=== PATIENT | male | born 1960 | race Caucasian/White ===

== ENCOUNTER 2017-07-27 08:13 | Inpatient (IN) | payer BC ==
[2017-06-24 10:40] VITALS: BMI 50.0
--- NOTE | 2017-06-24 11:10 | PAT Medication Instructions ---
Service Date Jun 24, 2017. Current Home Medication List Losartan Potassium (Cozaar), 50 MG PO QAM Naproxen (Naprosyn), 500 MG PO prn Medication Instructions For Your Scheduled Surgery - Hold the following medications 7-10 days prior to surgery per your surgeon's instructions: Naproxen (Naprosyn), 500 MG PO prn - Hold the following medications the morning of surgery: Losartan Potassium (Cozaar), 50 MG PO QAM If you have any questions please call us at [phone] or [phone] or [phone]
--- NOTE | 2017-06-24 12:04 | DIAGNOSTIC IMAGING REPORT ---
CHEST 2 VIEWS ROUTINE HISTORY: 57 years-old Male pat preoperative exam. No acute chest complaints.] Hip degenerative joint disease. COMPARISON: Chest radiograph 06/22/2015 TECHNIQUE: PA and lateral views of the chest FINDINGS: Cardiomediastinal and hilar silhouettes are within normal limits. No pneumothorax, pleural effusion, focal airspace consolidation or overt pulmonary edema. Bones of the chest appear grossly intact. Degenerative changes are seen within the shoulders and spine. IMPRESSION: No acute process. The above report was generated using voice recognition software. It may contain grammatical, syntax or spelling errors. Electronically signed by: Zhen Olvera M.D. 06/24/2017 12:03 PM Dictated Date/Time: 06/24/2017 12:02 PM
[2017-06-24 12:18] LABS: BASO % 0.4 %; BASO ABS # 0.03 K/uL (0-0.2); EOS % 2.2 %; EOS ABS # 0.17 K/uL (0-0.5); HEMATOCRIT 47.6 % (42-52); HEMOGLOBIN 16.6 g/dL (14.0-18.0); IG# 0.04 K/uL (0.00-0.02); LYMPH % 32.4 %; LYMPH ABS # 2.55 K/uL (1.2-3.4); MEAN CELL VOLUME 89.8 fL (80-100); MEAN CORPUSCULAR HEMOGLOBIN 31.3 pg (25-34); MEAN CORPUSCULAR HGB CONC 34.9 g/dl (32-36); MEAN PLATELET VOLUME 10.6 fL (7.4-10.4); MONO ABS # 0.79 K/uL (0.11-0.59); NEUT % 54.5 %; NEUT ABS # 4.29 K/uL (1.4-6.5); PLATELET COUNT 198 K/uL (130-400); RED CELL DISTRIBUTION WIDTH CV 13.2 % (11.5-14.5); RED CELL DISTRIBUTION WIDTH SD 43.2 fL (36.4-46.3); WHITE BLOOD COUNT 7.87 K/uL (4.8-10.8)
[2017-06-24 12:28] LABS: PTT PATIENT 23.7 SECONDS (21.0-31.0)
[2017-06-24 12:34] LABS: BLOOD UREA NITROGEN 20 mg/dl (7-18); CALCIUM 9.3 mg/dl (8.5-10.1); CARBON DIOXIDE 31 mmol/L (21-32); CREATININE 0.96 mg/dl (0.60-1.40); GLUCOSE 97 mg/dl (70-99); SODIUM 136 mmol/L (136-145)
--- NOTE | 2017-07-23 22:02 | HISTORY & PHYSICAL EXAMINATION ---
DATE OF ADMISSION: 07/27/2017 CHIEF COMPLAINT: Right knee pain. HISTORY OF PRESENT ILLNESS: This is a 57-year-old gentleman who is well known to me from previous left hip replacement done 12 years ago. He has done well from that side. Over the past several years, he has developed increased pain and discomfort in his right knee. He has become more and more debilitated by this. We put several shocks in his knee that provided very temporary relief only. When he first gets up, he has quite a bit of pain. Walks a little bit of out, but it is always painful. As he walks more then it gets worse. It is global pain in both medial and lateral. He has nighttime pain. He would like to have this fixed. Of note, patient lives in [place], [place], but comes here to stay for the next 6 weeks or so to recover. PAST MEDICAL HISTORY: Significant for: 1. Hypertension. 2. Sleep apnea with CPAP machine. 3. Hiatal hernia. 4. Obesity with a BMI of 50.5. PAST SURGICAL HISTORY: Include: 1. Left total hip replacement 12 years ago. 2. Right knee arthroscopy. 3. Left shoulder surgery. 4. Left knee arthroscopy. ALLERGIES: None. CURRENT MEDICATIONS: Losartan 50 mg a day. SOCIAL HISTORY: A 57-year-old male. He is from [facility], but currently lives in [place], [place]. He does not smoke. FAMILY HISTORY: No significant history. All age related diseases. REVIEW OF SYSTEMS: Negative for diabetes. Denies any chest pain or shortness of breath. No evidence of DVT or PE. No known bleeding problems. PHYSICAL EXAMINATION: GENERAL: Reveals a healthy pleasant, fairly large male. He looks to be in good health. HEENT: Benign. NECK: Supple, no lymphadenopathy. LUNGS: Clear to auscultation. HEART: Regular rate and rhythm ABDOMEN: Soft, nontender, nondistended. EXTREMITIES: Grossly neurovascularly intact except as follows: Examination of right knee reveals the patient walks with a slight limp. His alignment looks pretty anatomic. Small knee effusion. Range of motion is 5-125. No instability. Relatively painless hip motion. Little stiffness with internal rotation. X-RAYS: X-rays of the right knee reviewed. It shows advanced right knee DJD. He has got near complete loss of his lateral joint space. He has got tricompartment changes. He has some bony fragments around his tibial tubercle. ASSESSMENT: A 57-year-old male 12 years out from a left total hip replacement with advanced right knee degenerative joint disease. He has failed conservative treatment. It is limiting his activities and would like to have his right knee replaced. PLAN: We will take him to the operating room and do a right total knee replacement. The risks and benefits of this procedure were explained to the patient including but not limited to DVT, PE, , infection, neurological injury, vascular injury, bleeding problem, pain, limited range of motion, stiffness, failure to relieve her symptoms, incomplete relief of symptoms, need for further surgery in the future, fracture, leg length inequality, nerve palsy, need for revision surgery, etc. The patient understands and desires to proceed. Informed consent was obtained. We did talk to him about bringing his CPAP machine to the hospital. FAHAD
[2017-07-27] VITALS (8 sets, daily range): BP systolic 106–143; BP diastolic 56–77; PULSE 53–88; TEMP 36.6–37.3; O2SAT 94–98; Ht 175.3 cm; Wt 149.0 kg
[~2017-07-27] VITALS: Ht 175.3 cm; Wt 149.0 kg
[~2017-07-27 08:13] MED LIST: ACETAMINOPHEN 500 MG TAB PO SCH; BUPIVACAINE 0.5 % 5 MG/1 ML PF 10ML VIAL ONE; BUPIVACAINE LIPOSOME 266 MG, BUPIVACAINE/EPINEPHRINE INJ 50 ML, SODIUM CHLORIDE 0.9% PF... INFIL SCH; CEFAZOLIN 3000MG IV PUSH 15 ML IV SCH; FAMOTIDINE 20 MG TAB PO SCH; GABAPENTIN 300 MG CAP PO SCH; LACTATED RINGER'S 1000ML 1,000 ML IV SCH; LACTATED RINGER'S 1000ML 500 ML IV SCH; LACTATED RINGER'S 1000ML IV SCH; LOSA50TA6 PO; NPR500 PO; OXYCODONE HCL 10 MG TABCR (OXYCONTIN) PO SCH; SCOPOLAMINE 1.5 MG TDSY TD SCH; TRANEXAMIC ACID INJ 1,000 MG in SYRINGE 0 ML IV SCH
--- NOTE | 2017-07-27 08:46 | History & Physical Bridge Note ---
H&P Re-Evaluation Bridge Note: I have examined the patient, reviewed the History & Physical and in the interval since the performance of the History & Physical I have noted the following changes of clinical significance: No changes noted
[2017-07-27] MEDS ORDERED: SCOPOLAMINE 1.5 MG TDSY TD ONE (08:53)
[2017-07-27] MEDS ORDERED: ATROPINE SULFATE 0.1 MG/ML 5ML SYR IV PRN (09:30)
[2017-07-27] MEDS ORDERED: EpHEDrine SULFATE INJ 50 MG/ML AMP IV PRN (09:30)
[2017-07-27] MEDS ORDERED: ONDANSETRON INJ 2 MG/ML 2 ML VIAL IV PRN ×2 (09:30→13:15)
[2017-07-27] MEDS ORDERED: FENTANYL CITRATE INJ 50 MCG/1 ML 2 ML VIAL IV PRN (09:30)
[2017-07-27] MEDS ORDERED: PROPOFOL IV EMULSION 10 MG/ML 20 ML VIAL IV ONE (09:32)
[2017-07-27] MEDS ORDERED: FENTANYL CITRATE INJ 50 MCG/1 ML 2 ML VIAL ONE (09:32)
[2017-07-27] MEDS ORDERED: LIDOCAINE HCL 2% 2 ML VIAL (20MG/ML) ONE (09:32)
[2017-07-27] MEDS ORDERED: MIDAZOLAM HCL 1 MG/ML 2ML VIAL ONE (09:33)
[2017-07-27] MEDS ORDERED: BUPIVACAINE/EPINEPHRINE 0.25% 1:200,000 30 ML VIAL ONE (10:59)
[2017-07-27] MEDS ORDERED: BUPIVACAINE LIPOSOME 1/3% 266 MG/20 ML VIAL INFIL ONE (11:00)
[2017-07-27] MEDS ORDERED: SODIUM CHLORIDE 0.9% PF 50 ML VIAL ONE (11:00)
[2017-07-27] MEDS ORDERED: BACITRACIN 50000 UNIT VIAL ONE (11:00)
[2017-07-27] MEDS ORDERED: PHENYLEPHRINE 100MCG/ML 5ML SYR ONE (11:32)
[2017-07-27] MEDS ORDERED: EpHEDrine SULFATE 50MG/5ML SYR ONE (11:32)
--- NOTE | 2017-07-27 13:05 | [facility] Post Operative Brief Note ---
Immediate Operative Summary Operative Date Jul 27, 2017. Pre-Operative Diagnosis Advanced Right Knee Degenerative Joint Disease Post-Operative Diagnosis Advanced Right Knee Degenerative Joint Disease Procedure(s) Performed Right Total Knee Arthroplasty Surgeon Dr. Nichols [employer] Surgeon(s) DEBBI Talamantes Estimated Blood Loss 50 ml Findings Consistent with Post-Op Diagnosis Fluids (cc crystalloids) 1600 cc Specimens A. Right Knee Bone and Tissue Drains None Anesthesia Type MAC Spinal Regional Complication(s) none Disposition Accompanied Pt To Recover: no Disposition: Recovery Room / PACU
[2017-07-27] MEDS ORDERED: BISACODYL 10 MG SUPP PR PRN (13:15)
[2017-07-27] MEDS ORDERED: METOCLOPRAMIDE HCL INJ 5 MG/ML 2 ML VIAL IV PRN (13:15)
[2017-07-27] MEDS ORDERED: ALUMINUM/MAGNESIUM/SIMETH (MAALOX MAX) 30 ML UDC PO PRN (13:15)
[2017-07-27] MEDS ORDERED: ZOLPIDEM TARTRATE 5 MG TAB PO PRN (13:15)
[2017-07-27] MEDS ORDERED: TAMSULOSIN HCL 0.4 MG CAP PO PRN (13:15)
[2017-07-27] MEDS ORDERED: DiphenhydrAMINE HCL 50 MG/ML VIAL IV PRN (13:15)
[2017-07-27] MEDS ORDERED: SILVER SULFADIAZINE 1% CR 50 GM JAR EXT PRN (13:15)
[2017-07-27] MEDS ORDERED: MAGNESIUM HYDROXIDE SUSP 30 ML UDC PO PRN (13:15)
--- NOTE | 2017-07-27 13:47 | Anesthesiology Progress Note ---
Anesthesia Post Op Note Date & Time Jul 27, 2017 at 13:47 Vital Signs Pain Intensity: 0 Vital Signs Past 12 Hours Date Time Temp Pulse Resp B/P (MAP) Pulse Ox O2 Delivery O2 Flow Rate FiO2 07/27/17 13:40 58 16 101/52 100 Nasal Cannula 4 07/27/17 13:30 54 16 103/48 100 Nasal Cannula 4 07/27/17 13:20 54 16 109/50 96 Oxymask 10 07/27/17 13:12 37.5 65 16 106/50 96 Oxymask 10 07/27/17 09:01 36.7 69 18 143/77 94 Room Air Notes Mental Status: alert / awake / arousable, participated in evaluation Pt Amnestic to Procedure: Yes Nausea / Vomiting: adequately controlled Pain: adequately controlled Airway Patency, RR, SpO2: stable & adequate BP & HR: stable & adequate Hydration State: stable & adequate Neuraxial Anesthesia: was administered, sensory block is resolving Anesthetic Complications: no major complications apparent
--- NOTE | 2017-07-27 14:04 | DIAGNOSTIC IMAGING REPORT ---
R KNEE 1 OR 2 VIEWS ROUTINE CLINICAL HISTORY: AP/LATERAL IN PACU RIGHT KNEE pain COMPARISON: None. DISCUSSION: Anatomic alignment status post total right knee arthroplasty. Good contact between prosthetic and the Bone. Expected soft tissue postoperative change. IMPRESSION: Anatomic alignment status post total right knee arthroplasty. The above report was generated using voice recognition software. It may contain grammatical, syntax or spelling errors. Electronically signed by: Tyrone Rivera M.D. 07/27/2017 2:03 PM Dictated Date/Time: 07/27/2017 2:02 PM
[2017-07-27] MEDS: OXYCODONE HCL IR 5 MG TAB (IMMEDIATE RELEASE) PO PRN (15:26)
[2017-07-27] MEDS: D5W AND 1/2NSS + 20MEQ KCL 1,000 ML IV SCH ×2 (15:35→22:13)
[2017-07-27] MEDS: CHECK SCOPOLAMINE PATCH PLACEMENT SCH ×2 (15:38→23:40)
--- NOTE | 2017-07-27 15:54 | OPERATIVE REPORT ---
DATE OF OPERATION: 07/27/2017 SURGEON: Dr. Tomas Nichols. DIRECTOR OF ACCOUNTING: DEBBI Roca PREOPERATIVE DIAGNOSIS: Right knee degenerative joint disease. POSTOPERATIVE DIAGNOSIS: Same. PROCEDURE PERFORMED: Right cemented posterior stabilized total knee arthroplasty. COMPLICATIONS: None. ESTIMATED BLOOD LOSS: 50 mL. FLUID REPLACEMENT: 1600 mL crystalloid fluid replacement. TOURNIQUET TIME: 66 minutes at 300 mmHg. ANESTHESIA: Spinal with adductor canal block. DRAINS: None. SPECIMENS: Right knee sent for pathology. OPERATIVE INDICATIONS: The patient is a 57-year-old gentleman who is from [facility], but currently working down in [place], who has had a several year history of increasing right knee pain and discomfort, unresponsive to conservative care. We put multiple shots in his knees, which provided just very temporary relief. X-rays show advanced knee arthritis, particularly in the lateral side. He did have a history of an open surgery on the lateral side of his knee in high school, likely a partial meniscectomy. He failed conservative treatment and elected to proceed with operative treatment. OPERATIVE FINDINGS: Operative findings revealed advanced right knee DJD. He had grade 4 changes in all 3 compartments. He had grade 4 changes extensively in the medial femoral condyle and interestingly, the medial tibial plateau was relatively well preserved. In the lateral compartment, he had grade 4 changes of both on the femoral condyle as well as the tibial plateau and pretty extensive grade 4 changes of the patellofemoral joint. OPERATIVE IMPLANTS: Operative implants consisted of: 1. Biomet Vanguard size 70 right posterior stabilized femoral component. 2. Biomet size 75 tibial tray. 3. A 10-mm posterior stabilized polyethylene insert. 4. A 34 x 8.5 all poly patella. OPERATIVE PROCEDURE: The patient was taken to the operating room, identified and placed on the operating table in the supine position. All contact areas were appropriately padded. IV antibiotics were provided by anesthesia team. A spinal anesthetic and adductor canal block had been provided in the holding area. Chow catheter was placed in sterile fashion. A right thigh tourniquet was then placed and the right lower extremity was then prepped and draped in the usual sterile fashion. The right leg was then elevated and exsanguinated with Esmarch and tourniquet was placed at 300 mmHg. An anterior approach to the right knee was then performed through a longitudinal incision centered over the patella. Sharp dissection was carried out through the subcutaneous tissues down to the level of the extensor mechanism. We did use an entirely new incision as this previous lateral incision was from his high school days. Subperiosteal dissection was carried out medially. The fat pad was resected from beneath the patellar tendon. The lateral patellofemoral ligament was released. The patella was everted and knee was flexed. Of note, his extensor mechanism was fairly tight and difficult to mobilize due to the multiple bone fragments in the patella tendon itself. I did not feel like I could remove these without compromising the patellar tendon. The knee was flexed. The osteophytes were taken off the distal femur. The ACL and PCL were then released from the distal femur and the tibia subluxated anteriorly. The external tibial alignment jig was then placed in the anterior face of the tibia and adjusted 14 mm medially. Proximal tibial cut was made to remove about 2 mm of bone from the most deficient aspect of the medial tibial plateau. Tibia was then sized to a size 75. Attention was then drawn to the femur. The distal femur was entered with a sharp drill. Intramedullary canal was suctioned. A right 6-degree valgus cutting guide was placed. Distal femoral cutting block was pinned in place. Distal femoral cut was made to take an additional 3 mm of bone off the distal femur. The femur was then sized to a size 70. We downsized this slightly. The AP cutting block was pinned parallel to the epicondylar axis, which was 5 degrees of external rotation. The anterior cut, anterior chamfer, posterior cut, and posterior chamfer cuts were made. Box cutting guide was placed. The box cut was made. The remnants of the medial and lateral menisci were excised. The osteophytes were taken off the posterior aspect of the femur. Trial femoral component was placed. Tibial tray was pinned in maximum external rotation and drill and stem punch were used to create defect in the proximal tibia for the tibial tray. The knee was then trialed and a 10-mm insert fit most appropriately. I just felt like a 12 insert was just a little bit tight. Attention was then drawn to the patella. The patella was cleaned of all soft tissues. Patella thickness measured 24 mm in thickness and it was cut down to 14. It was sized to a size 34 patella. Lug holes were drilled for a 34 patella. Lateral osteophyte was removed. The patellar button was placed. Knee was taken through range of motion and the patella tracked nicely with no thumbs test. Attention was then drawn toward placement of the permanent components. All trial components were removed. Bone plug was placed in the distal femur to limit blood loss. A double batch of Palacos G cement was mixed. A right size 70 posterior stabilized femoral component, size 75 tibial tray, a 10-mm posterior stabilized polyethylene insert, and a 34 x 8.5 all poly patella then cemented in place. Knee was brought out into full extension until cement hardened. A final cement check was then performed. Pericapsular tissues were injected with a total of 100 mL of a combination of 20 mL of Exparel, 30 mL of normal saline, and 50 mL of 0.25% Marcaine with epinephrine. The patient did receive 1 gram of tranexamic acid. The tourniquet was then let down for a final tourniquet time of 66 minutes. Hemostasis was assured with use of electrocautery. The extensor mechanism was then closed with a combination of #1 PDS suture and #1 Vicryl suture in a [id number] fashion. Extensor mechanism was checked and found to be intact. The subcutaneous tissues were then closed with 2-0 Dexon suture in a buried interrupted fashion. Skin was closed skin trevor. Leg was then cleaned and dried and a sterile dressing of Xeroform, 4 x 4, sterile cast padding and Pablito bandage were applied. The patient then transferred to the recovery room in stable condition. The patient tolerated the procedure well with no complications. All needle and sponge counts were correct at the end of the operation. I attest to the content of the Intraoperative Record and any orders documented therein. Any exception s are noted below.
[2017-07-27] MEDS: MoRPHine SULFATE 2 MG/ML CARP IV PRN ×3 (15:59→20:48)
--- NOTE | 2017-07-27 17:32 | PROGRESS NOTE ---
DATE: 07/27/2017 SUBJECTIVE: A 57-year-old gentleman postop from a right knee replacement. He is doing well. He is starting to have some pain in his knee. No chest pain or shortness of breath. Not feeling dizzy or lightheaded. OBJECTIVE: VITAL SIGNS: Temperature is 36.6. Vital signs stable. GENERAL: Reveals a healthy, pleasant, middle-aged male. He is sitting up in bed and talking to his family. Looks comfortable. LUNGS: Clear to auscultation. HEART: Regular rate and rhythm. ABDOMEN: Soft, nontender, nondistended. EXTREMITIES: Grossly neurovascularly intact except as follows: Examination of the right leg reveals the leg to be well aligned. He can dorsiflex and plantarflex his foot appropriately. He is neurologically intact. The dressing is clean, dry and intact. X-RAYS: X-rays of the right knee from today are reviewed. It shows a cemented posterior stabilized total knee arthroplasty. The components to be in good position. No signs of problems. ASSESSMENT: A 57-year-old gentleman postop from a right knee replacement, doing well. His pain is controlled. He is neurologically intact. PLAN: 1. DVT prophylaxis including thigh-high TEDs, SCDs, and aspirin twice a day. 2. PT/OT. Weight bear as tolerated. Right total knee protocol. 3. Pain control, doing pretty well with current pain regimen. 4. IV antibiotics x24 hours. 5. Disposition: He is planning to be discharged likely to home with some home health once adequately recovered.
[2017-07-27] MEDS: FERROUS GLUCONATE 324 MG TAB PO SCH (17:48)
[2017-07-27] MEDS: KETOROLAC TROMETHAMINE 30 MG/ML VIAL IV. SCH ×2 (17:48→23:38)
[2017-07-27] MEDS ORDERED: TRANEXAMIC ACID INJ 1,000 MG in SODIUM CHLORIDE 0.9% 100ML 100 ML IV SCH (18:00)
[2017-07-27] MEDS: CEFAZOLIN IV 2,000 MG in SYRINGE 0 ML IV SCH (20:37)
[2017-07-27] MEDS: DOCUSATE SODIUM 100 MG CAP PO SCH (20:37)
[2017-07-27] MEDS: ASPIRIN 325 MG ECTAB PO SCH (20:38)
[2017-07-27] MEDS: SENNA 8.6 MG TAB PO SCH (20:39)
[2017-07-27] MEDS: TAPENTADOL ER 50 MG TABCR PO SCH (20:48)
[2017-07-27] MEDS: ACETAMINOPHEN 500 MG TAB PO SCH (22:05)
[2017-07-28] VITALS (8 sets, daily range): BP systolic 121–145; BP diastolic 58–82; PULSE 77–81; TEMP 36.3–37.7; O2SAT 93–97
[2017-07-28] MEDS: MoRPHine SULFATE 2 MG/ML CARP IV PRN ×6 (03:10→20:08)
[2017-07-28] MEDS: CEFAZOLIN IV 2,000 MG in SYRINGE 0 ML IV SCH (03:57)
[2017-07-28] MEDS: D5W AND 1/2NSS + 20MEQ KCL 1,000 ML IV SCH ×2 (04:55→10:54)
[2017-07-28] MEDS: KETOROLAC TROMETHAMINE 30 MG/ML VIAL IV. SCH ×4 (05:33→23:36)
[2017-07-28] MEDS: ACETAMINOPHEN 500 MG TAB PO SCH ×3 (05:34→21:33)
[2017-07-28] MEDS: CHECK SCOPOLAMINE PATCH PLACEMENT SCH ×3 (07:41→23:36)
[2017-07-28 07:55] LABS: HEMATOCRIT 38.5 % (42-52); MEAN CELL VOLUME 91.4 fL (80-100); MEAN CORPUSCULAR HEMOGLOBIN 30.9 pg (25-34); MEAN CORPUSCULAR HGB CONC 33.8 g/dl (32-36); MEAN PLATELET VOLUME 10.2 fL (7.4-10.4); PLATELET COUNT 181 K/uL (130-400); RED CELL DISTRIBUTION WIDTH CV 13.3 % (11.5-14.5); RED CELL DISTRIBUTION WIDTH SD 44.5 fL (36.4-46.3); WHITE BLOOD COUNT 9.29 K/uL (4.8-10.8)
[2017-07-28 08:26] LABS: CALCIUM 8.3 mg/dl (8.5-10.1); CREATININE 1.1 mg/dl (0.60-1.40); POTASSIUM 3.8 mmol/L (3.5-5.1)
[2017-07-28] MEDS: MULTIVITAMIN TAB PO SCH (08:38)
[2017-07-28] MEDS: FERROUS GLUCONATE 324 MG TAB PO SCH ×3 (08:38→18:35)
[2017-07-28] MEDS: DOCUSATE SODIUM 100 MG CAP PO SCH ×2 (08:38→21:33)
[2017-07-28] MEDS: TAPENTADOL ER 50 MG TABCR PO SCH ×2 (08:38→21:31)
[2017-07-28] MEDS: LOSARTAN POTASSIUM 50 MG TAB PO SCH (08:39)
[2017-07-28] MEDS: PANTOprazole SOD 40 MG TAB PO SCH (08:39)
[2017-07-28] MEDS: ASPIRIN 325 MG ECTAB PO SCH ×2 (08:39→21:32)
[2017-07-28] MEDS ORDERED: ACET-24 PO (09:54)
[2017-07-28] MEDS ORDERED: ASPEC325 PO (09:54)
[2017-07-28] MEDS ORDERED: RXC5 PO (09:54)
--- NOTE | 2017-07-28 09:56 | Discharge Instructions ---
Discharge Instructions Date of Service Jul 28, 2017. Admission Reason for Admission: Right Knee Degenerative Joint Disease Discharge Discharge Diagnosis / Problem: Right Knee Replacement Discharge Goals Goal(s): Decrease discomfort, Improve function, Increase independence, Improve disease control, Therapeutic intervention Activity Recommendations Activity Limitations: per Instructions/Follow-up section Weightbearing Status: Right weightbearing . Instructions / Follow-Up Instructions / Follow-Up ACTIVITY RECOMMENDATIONS: Physical Therapy: * You will go to physical therapy three times each week for four to six weeks after your surgery in order to regain your knee range of motion and to retrain your knee to work properly. * It is just as important to make sure you are getting your knee perfectly straight as it is to regain your knee bend. * Taking a pain pill an hour before therapy can help you have a more productive and comfortable therapy session. Home Exercise: * You were shown a series of exercises (heel props, heel slides, etc.) in the hospital. Do these exercises three to four times each day including the exercises you were shown in physical therapy. Walking: * Get up and walk several times each day. For the first four weeks, try not to stand or walk for more than one hour at a time. If you do stand or walk for more than one hour, you will not hurt anything, but your knee and leg will likely swell. * As you feel comfortable, you may change from the walker or crutches to a cane and then to independent walking. MEDICATIONS: New Medicine: * You will likely be taking one or more of these medications: 1. Oxycodone - A quick and shorter-acting pain medication. Take one to two tablets every four to six hours to lessen your pain. 2. Aspirin - Thins your blood to lessen the chance of forming a blood clot. * The most common side effects of pain medicine and iron are nausea and constipation. If nausea or constipation is too much of a problem or if you have any questions about your new medicines or doses, call [facility] at [phone]. We will try to help you manage these issues. VERY IMPORTANT TO READ AND REVIEW" Pain: * The immediate post-operative period after knee replacement surgery is often quite painful. * You are given a prescription for pain medicine. You should take it, as directed, when you need it, especially before physical therapy and before going to bed. Pain that interferes with sleep is very common and can last several months. * You will likely need pain medicine for the first four to six weeks. It will not stop all of the pain. The pain will lessen and as you feel better, you may change to milder pain medicine such as Tylenol. * The most common side effects of pain medicine are nausea and constipation, so don't take more than you need. SPECIAL CARE INSTRUCTIONS: TEDs/Elastic Stockings: * The white elastic stockings help limit swelling and prevent blood clots from forming in your legs. The more you wear them, the more they work. * Wear them for six weeks after knee replacement surgery and four weeks after partial knee replacement. Prevention of Infection: * Take antibiotics one hour before any dental cleaning, dental work, urological procedure, gastrointestinal procedure or any invasive surgery in order to prevent your new joint from getting infected. * You may get the antibiotics from the doctor performing the procedure or you may call our office at before and we will call in a prescription to the pharmacy of your choice. Things to Watch For: * Drainage from the incision site that occurs more than one week after your surgery. * Severely increased knee/leg pain or swelling. * Increased redness at the incision site. * Fever above 102 degrees Fahrenheit. * Unusual chest pain or shortness of breath. * Unusual pain or burning with urination. Call [facility] at with any of the above problems or if you have any questions about your medicines or recovery. FOLLOW UP VISIT: Make an appointment to see your doctor for approximately two weeks after surgery for a progress check and staple removal by calling the office at . Current Hospital Diet Patient's current hospital diet: Regular Diet Discharge Diet Recommended Diet: Regular Diet Procedures Procedures Performed: Right Total Knee Arthroplasty Pending Studies Studies pending at discharge: no Medical Emergencies . Who to Call and When: Medical Emergencies: If at any time you feel your situation is an emergency, please call 120 immediately. . Non-Emergent Contact Non-Emergency issues call your: Surgeon . "Provider Documentation" section prepared by Tomas Nichols. . VTE Core Measure Inpt VTE Proph given/why not?: Other Anticoagulation, T.E.D. Stockings, SCD's
--- NOTE | 2017-07-28 09:58 | PROGRESS NOTE ---
DATE: 07/28/2017 SUBJECTIVE: A 57-year-old gentleman postop day 1 from right knee replacement. He is doing pretty well. Rates his most severe pain is a 6. No chest pain or shortness of breath. Not feeling dizzy or lightheaded. OBJECTIVE: VITAL SIGNS: Temperature 36.8. Vital signs stable. PHYSICAL EXAMINATION: GENERAL: Reveals a fairly large gentleman sitting up in his bedside chair talking with a therapist. LUNGS: Clear to auscultation. HEART: Regular rate and rhythm. ABDOMEN: Soft, nontender, nondistended. EXTREMITIES: Grossly neurovascularly intact except as follows. Examination of the right leg reveals the dressing to be clean, dry and intact. There is no drainage. He can dorsiflex and plantarflex his foot appropriately. He is neurologically intact. LABORATORY DATA: Hemoglobin 13.0. Hematocrit 38.5. Electrolytes are stable. ASSESSMENT: This is a 57-year-old gentleman postop day 1 from a right knee replacement, doing pretty well. Pain is reasonably well controlled. PLAN: 1. DVT prophylaxis including thigh-high TEDs, SCDs, and aspirin twice a day. 2. PT/OT. Weight bear as tolerated. Right total knee protocol. 3. Pain control, doing pretty well with current pain regimen. 4. Disposition: He is planning to be discharged to home with some home health once adequately recovered.
[2017-07-28] MEDS: OXYCODONE HCL IR 5 MG TAB (IMMEDIATE RELEASE) PO PRN ×3 (10:15→21:32)
--- NOTE | 2017-07-28 13:36 | Anesthesiology Progress Note ---
Anesthesia Post Op Note Date & Time Jul 28, 2017 at 13:35 Vital Signs Pain Intensity: 9.0 Vital Signs Past 12 Hours Date Time Temp Pulse Resp B/P (MAP) Pulse Ox O2 Delivery O2 Flow Rate FiO2 07/28/17 12:08 36.9 79 139/58 (85) 94 Room Air 07/28/17 07:37 36.8 79 18 122/60 (80) 94 Room Air 07/28/17 07:30 94 Room Air 07/28/17 03:18 36.9 79 16 141/82 (101) 94 Room Air Notes Mental Status: alert / awake / arousable, participated in evaluation Pt Amnestic to Procedure: Yes Nausea / Vomiting: adequately controlled Pain: adequately controlled Airway Patency, RR, SpO2: stable & adequate BP & HR: stable & adequate Hydration State: stable & adequate Awake alert, pain controlled with medications at rest pain scale 1. No complaints with anesthesia care.
[2017-07-28] MEDS: SENNA 8.6 MG TAB PO SCH (21:36)
[2017-07-29] MEDS: OXYCODONE HCL IR 5 MG TAB (IMMEDIATE RELEASE) PO PRN ×2 (03:17→08:30)
[2017-07-29] MEDS: KETOROLAC TROMETHAMINE 30 MG/ML VIAL IV. SCH (06:00)
[2017-07-29] MEDS: ACETAMINOPHEN 500 MG TAB PO SCH (06:00)
[2017-07-29 07:07] VITALS: BP 166/75; PULSE 77; TEMP 37.3; O2SAT 96
[2017-07-29] MEDS: CHECK SCOPOLAMINE PATCH PLACEMENT SCH (08:00)
[2017-07-29] MEDS: TAPENTADOL ER 50 MG TABCR PO SCH (09:12)
[2017-07-29] MEDS: FERROUS GLUCONATE 324 MG TAB PO SCH (09:12)
[2017-07-29] MEDS: PANTOprazole SOD 40 MG TAB PO SCH (09:13)
[2017-07-29] MEDS: MULTIVITAMIN TAB PO SCH (09:13)
[2017-07-29] MEDS: LOSARTAN POTASSIUM 50 MG TAB PO SCH (09:13)
--- NOTE | 2017-07-29 09:34 | PROGRESS NOTE ---
DATE: 07/29/2017 DATE: 07/29/2017 SUBJECTIVE: A 57-year-old gentleman postop day 2 from a right knee replacement. He is doing pretty well. Pain is better today. No chest pain or shortness of breath. Not feeling dizzy or lightheaded. He is doing well with pain pills. OBJECTIVE: VITAL SIGNS: Temperature 37.3. Vital signs stable. PHYSICAL EXAMINATION: GENERAL: Reveals a pleasant, middle-aged male. I had to wake him this morning. LUNGS: Clear to auscultation. HEART: Regular rate and rhythm. ABDOMEN: Soft, nontender, nondistended. EXTREMITY EXAMINATION: Grossly neurovascularly intact except as follows: Examination of the right leg reveals the dressing to be in place. Just a slight bit of bloody drainage on the anterior aspect. Leg is well aligned. He can dorsiflex and plantarflex his food appropriately. He is neurologically intact. ASSESSMENT: A 57-year-old gentleman postop day 2 from a right knee replacement, doing pretty well. Pain is controlled. PLAN: 1. DVT prophylaxis including thigh-high TEDs, SCDs, and aspirin twice a day. 2. PT/OT. Weightbearing as tolerated. Right total knee protocol. 3. Pain control. Doing pretty well with current pain regimen. 4. Disposition. Plan to discharge to home with some home health later today.
[2017-07-29] MEDS: DOCUSATE SODIUM 100 MG CAP PO SCH (09:48)
[2017-07-29] MEDS: ASPIRIN 325 MG ECTAB PO SCH (09:48)
[2017-07-29 11:38] VITALS: BP 166/75; PULSE 77; TEMP 37.3; O2SAT 96
== END 2017-07-29 12:29 | disposition home health service (06) | DRG 470 ==
LOC: C.ACU 08:13 → C.MSN 13:09 → ENRESERV 13:57
PROVIDERS: ADMIT Orthopaedic Surgery Sports Medicine; ATTEND Orthopaedic Surgery Sports Medicine
PROC: 0SRT0J9 Replacement of Right Knee Joint, Femoral Surface with Synthetic Substitute, Cemented, Open Approach (ICD-10-PCS; principal; 2017-07-27 11:00)
DX: M17.11 Unilateral primary osteoarthritis, right knee (principal); Z68.42 Body mass index [BMI] 45.0-49.9, adult; I10 Essential (primary) hypertension; G47.30 Sleep apnea, unspecified; E66.9 Obesity, unspecified; Z96.642 Presence of left artificial hip joint

== ENCOUNTER → 2017-09-06 | Outpatient (CLI) | payer BC ==
[~2017-09-06] MED LIST changes: +ACET-24 PO; -ACETAMINOPHEN 500 MG TAB PO SCH; +ASPEC325 PO; -BUPIVACAINE 0.5 % 5 MG/1 ML PF 10ML VIAL ONE; -BUPIVACAINE LIPOSOME 266 MG, BUPIVACAINE/EPINEPHRINE INJ 50 ML, SODIUM CHLORIDE 0.9% PF... INFIL SCH; -CEFAZOLIN 3000MG IV PUSH 15 ML IV SCH; -FAMOTIDINE 20 MG TAB PO SCH; -GABAPENTIN 300 MG CAP PO SCH; -LACTATED RINGER'S 1000ML 1,000 ML IV SCH; -LACTATED RINGER'S 1000ML 500 ML IV SCH; -LACTATED RINGER'S 1000ML IV SCH; -OXYCODONE HCL 10 MG TABCR (OXYCONTIN) PO SCH; +RXC5 PO; -SCOPOLAMINE 1.5 MG TDSY TD SCH; -TRANEXAMIC ACID INJ 1,000 MG in SYRINGE 0 ML IV SCH
[2017-09-06 17:56] LABS: BASO % 0.6 %; BASO ABS # 0.06 K/uL (0-0.2); EOS ABS # 0.28 K/uL (0-0.5); HEMATOCRIT 46.9 % (42-52); HEMOGLOBIN 15.7 g/dL (14.0-18.0); IG# 0.11 K/uL (0.00-0.02); LYMPH % 31.4 %; LYMPH ABS # 2.97 K/uL (1.2-3.4); MEAN CELL VOLUME 92.5 fL (80-100); MEAN CORPUSCULAR HGB CONC 33.5 g/dl (32-36); MONO % 11.3 %; MONO ABS # 1.07 K/uL (0.11-0.59); NEUT % 52.5 %; NEUT ABS # 4.98 K/uL (1.4-6.5); PLATELET COUNT 256 K/uL (130-400); WHITE BLOOD COUNT 9.47 K/uL (4.8-10.8)
[2017-09-06 18:22] LABS: ALBUMIN 4.1 gm/dl (3.4-5.0); ALT/SGPT 33 U/L (12-78); AST/SGOT 20 U/L (15-37); BLOOD UREA NITROGEN 21 mg/dl (7-18); CARBON DIOXIDE 28 mmol/L (21-32); CREATININE 1.01 mg/dl (0.60-1.40); GLUCOSE 102 mg/dl (70-99); POTASSIUM 4.9 mmol/L (3.5-5.1); SODIUM 136 mmol/L (136-145)
[2017-09-06 18:25] LABS: ALKALINE PHOSPHATASE 62 U/L (45-117); CHOLESTEROL 188 mg/dl (0-200); LDL CHOLESTEROL CALCULATED 118 mg/dl; TOTAL PROTEIN 7.7 gm/dl (6.4-8.2)
== END | disposition home or self-care (01) ==
LOC: C.LABMFLN 11:00
PROVIDERS: ATTEND Family Medicine
DX: I10 Essential (primary) hypertension (principal); Z96.659 Presence of unspecified artificial knee joint

== ENCOUNTER 2025-02-15 22:54 | Observation (INO) ==
--- NOTE | 2025-02-15 23:45 | Emergency Department Note ---
Impression & Plan Chest pain, Elevated troponin ED Provider Note Provider: Michael Belcher MD CHIEF COMPLAINT: Chest discomfort, fatigue HISTORY OF PRESENT ILLNESS: Patient is a 64-year-old gentleman history of PE/DVT on Eliquis, obesity, BPH, hypertension, lower extremity varicosities presenting here today with reporting her last 2 to 3 weeks of concerns of some central chest discomfort a dull ache. Worse with exertion and gets very fatigued with any exertion. Low bit lightheaded when trying to exert self but no syncope. Maybe a little bit of shortness of breath with exertion. Has a little bit of increased swelling of the lower legs. Does state compliance with home Eliquis. No falls or trauma. No abdominal pain or nausea reported. No fevers or cough. No recent stress test reported. PAST MEDICAL HISTORY: As noted above MEDICATIONS: Reviewed home medications FMH: Family with heart issues/CAD reported SOCIAL HISTORY: Non-smoker, PHYSICAL EXAM: GENERAL: alert and oriented in no acute distress on stretcher Head: normocephalic and atraumatic EYES: No injection, discharge or icterus. NECK: Trachea midline. ENT: Mucous membranes pink and moist LUNGS: Airway patent. No retractions. Breath sounds clear with good air entry bilaterally. HEART: Regular rate and rhythm. No chest wall tenderness ABDOMEN: Soft and non-tender, without guarding or rebound. SKIN: Acyanotic, warm, dry, without rashes EXTREMITIES: With trace to 1+ lower extremity edema. No significant tenderness or wounds noted. NEUROLOGICAL: No focal deficits. No aphasia. No facial droop or slurred speech.Ambulatory. EK bpm normal sinus rhythm. No PVC or PAC. No acute ST segment elevation with nonspecific inferior lateral T wave inversions. QTc 381. CONTINUOUS CARDIAC MONITORING: was ordered and showed a heart rate of 60s bpm in normal sinus rhythm Patient's laboratory studies and imaging reviewed. Differential includes Cardiac ischemia, aortic dissection, pulmonary embolism, pneumothorax, pneumonia, pericarditis, myocarditis, esophageal rupture, GERD, cholecystitis, pancreatitis, musculoskeletal, as well as other pathologies. IMPRESSION/MEDICAL DECISION MAKING: Patient with 2 to 3 weeks of mild or low-level chest discomfort worse with exertion minimal shortness of breath. Is anticoagulated doubt VTE. No severe pain and I doubt this is dissection. EKG without evidence of STEMI although there is a question of some inferior lateral T wave version. Given full dose aspirin here. Denies other GI symptoms. Chest x-ray obtained and blood work sent. No significant leukocytosis or anemia. Denies other infectious symptoms. Doubt pneumonia or pericarditis at this time. Troponin returns elevated just over 100. Electrolytes, kidney function, LFTs, lipase return without significant abnormality. Discussed with patient given exertional type symptoms and his risk factors do question if there is an occult cardiac process evolving here possible evolving NSTEMI. Has been using his Eliquis and took it this evening --will defer heparinization at this time. Will bring in for further care and cardiac evaluation and the hospitalist team was contacted. DIAGNOSIS: Chest pain, elevated troponin DISPOSITION: Hospitalist will evaluate Patient was agreeable with this plan. Past Med/Surg History Problem List (Updated 02/16/25 @ 00:29 by Michael Belcher M.D.) Elevated troponin (Acute) Chest pain (Acute) Cough Right ankle strain Right foot pain Prediabetes diet controlled Left knee DJD Sensorineural hearing loss of both ears SOB (shortness of breath) Recurrent deep vein thrombosis (DVT) of lower extremity History of surgery on arm Right leg swelling Bronchitis Ulnar neuropathy at elbow of right upper extremity Right carpal tunnel syndrome Varicose veins of left lower extremity with pain HERRERA (dyspnea on exertion) Atherogenic dyslipidemia Palpitations Venous reflux Coronary artery calcification seen on CAT scan Pulmonary nodule Varicose veins of left thigh Trigger finger (acquired) S/P TURP History of total left hip replacement Left hip pain 04/08/23 Left ankle pain 04/06/23 Cellulitis 04/06/23 Left foot pain 04/06/23 Migraine Postural lightheadedness 11/17/22 Post concussive syndrome Elevated blood sugar Vitamin D deficiency Memory loss 09/26/21 Elevated PSA Restless legs Facet arthritis, degenerative, cervical spine H/O multiple concussions Cervicogenic headache 07/28/21 Cervical pain Headache 05/20/21 Insomnia Ulnar neuropathy at elbow Numbness of left hand 04/04/21 Tinnitus of left ear Asymmetrical left sensorineural hearing loss AMRIK (obstructive sleep apnea) Sensorineural hearing loss (SNHL) of left ear with restricted hearing of right ear Tinnitus BPH (benign prostatic hyperplasia) Right knee DJD (Chronic) History of knee replacement, total (Chronic) RT Umbilical hernia (Chronic) Obesity (Chronic) Numbness and tingling in left arm (Chronic) resolved Headache (Chronic) 05/19/21 Hypertension (Chronic) Medical History GERD (gastroesophageal reflux disease) Edema Palpitations Hx of Lyme disease (~2020) Hx pulmonary embolism (~2019) Post concussion syndrome Arthritis History of COVID-19 (~06/2020) Hx of vertigo Tinnitus, bilateral AMRIK (obstructive sleep apnea) HTN (hypertension) Surgical History Hx of varicose veins History of total right knee replacement Hx of surgical procedure Hx of umbilical hernia repair History of carpal tunnel surgery of left wrist Hx of transurethral resection of prostate Hx of repair of left rotator cuff Hx of prostate biopsy History of colonoscopy History of tooth extraction History of ankle surgery History of tonsillectomy and adenoidectomy H/O vasectomy History of left hip replacement Family History Father Hearing loss Heart disease Cancer of kidney Pulmonary embolism Hypertension Sister Myocardial infarction Pacemaker Mother Hearing loss Hypertension Stroke Alzheimer disease Other No family history of adverse response to anesthesia Denies family history of Prostate cancer Social History Smoking Status: Never smoker Second Hand Exposure: No; Do You Dip or Chew Tobacco: No; Hx Alcohol Use: No Hx Substance Use: No Preferred Language: [place] Communication Ability: Effective General Partner Required: No Beliefs That Will Affect Care: None marital status: Current Living Situation: Spouse Current Living Situation Comment: AND MOTHER N LAW current occupational status: employed current occupation: [employer] Operator How many Children do You have: 2 other: Very active at work Feels Safe at Home: Yes Safety Concerns: Feels Safe At This Time Childhood Exposure to Second-Hand Smoke: No Diet: regular caffeine: Yes Dental Care, Regularly: Yes Physical Activity Frequency: Daily Seatbelt Use: always Sunscreen Use: Yes Assistive Devices: Glasses and Hearing Aid - Bilateral Allergies Allergies Allergy/AdvReac Type Severity Reaction Status Date / Time No Known Drug Allergies Allergy . Verified 02/16/25 01:15 Home Meds Home Medications Medication Instructions Recorded Confirmed cholecalciferol (vitamin D3) 50 50 mcg PO BID 05/12/23 02/16/25 mcg (2,000 unit) capsule Previous Rx's Medication Instructions Recorded albuterol sulfate 90 mcg/actuation 2 puff inhalation Q6H PRN 07/04/20 aerosol inhaler shortness of breath or wheezing #18 grams diclofenac sodium 1 % topical gel 4 g topical QID PRN ankle pain 09/12/24 #200 grams atorvastatin 10 mg tablet 10 mg PO QPM #90 tabs 09/15/24 apixaban 5 mg tablet (Eliquis) 5 mg PO BID #60 tabs 10/23/24 furosemide 20 mg tablet (Lasix) 20 mg PO DAILY #30 tabs 10/23/24 methocarbamol 500 mg tablet 500 mg PO TID PRN muscle spasm #90 12/14/24 tabs losartan 50 mg tablet 50 mg PO BID #180 tabs 12/25/24 amlodipine 5 mg tablet (Norvasc) 5 mg PO QAM #90 tabs 12/26/24 trazodone 50 mg tablet 50 mg PO HS PRN Sleep #30 tabs 01/06/25 tramadol 50 mg tablet 50 - 100 mg (1 - 2 x 50 mg) PO QID 01/25/25 PRN pain #120 tabs Results & Data (ED) Vital Signs Vital Signs - 24 hr 02/15/25 22:57 02/15/25 23:30 02/15/25 23:45 Temperature 36.7 C Temperature Source Oral Pulse Rate 81 62 Pulse Rhythm Respiratory Rate 20 Respiratory Effort / Characteristics Non-Labored Spontaneous Respiratory Depth Normal Respiratory Pattern Regular Blood Pressure 144/85 H Blood Pressure Mean 104 Pulse Oximetry 98 97 Oxygen Delivery Method Room Air Room Air Sepsis Recent Fever Within 48 Hours No Sepsis New/Unexplained Change in Mental Status No Sepsis Action Taken by Nursing No Action Required 02/16/25 00:55 02/16/25 01:09 Temperature Temperature Source Pulse Rate 60 65 Pulse Rhythm Regular Respiratory Rate 18 16 Respiratory Effort / Characteristics Respiratory Depth Respiratory Pattern Blood Pressure 136/96 Blood Pressure Mean 109 Pulse Oximetry 97 95 Oxygen Delivery Method Room Air Sepsis Recent Fever Within 48 Hours Sepsis New/Unexplained Change in Mental Status Sepsis Action Taken by Nursing Laboratory Data 02/15/25 23:43 02/16/25 02:08 Lab Results 02/15/25 Range/Units 23:43 WBC 10.34 (4.8-10.8) K/ul RBC 5.03 (4.70-6.10) M/uL Hgb 14.9 (14.0-18.0) g/dl Hct 44.8 (42.0-52.0) % MCV 89.1 (80.0-100.0) fL MCH 29.6 (25.0-34.0) pg MCHC 33.3 (32.0-36.0) g/dL RDW Std Deviation 43.4 (36.4-46.3) fL RDW Coeff of Finesse 13.3 (11.5-14.5) % Plt Count 188 (130-400) K/uL MPV 9.8 (9.4-12.4) fL Immature Gran % (Auto) 0.6 % Neut % (Auto) 50.1 % Lymph % (Auto) 35.9 % Kaufman % (Auto) 10.0 % Eos % (Auto) 2.8 % Baso % (Auto) 0.6 % Neut # (Auto) 5.19 (1.40-6.50) K/uL Lymph # (Auto) 3.71 H (1.20-3.40) K/uL Kaufman # (Auto) 1.03 H (0.11-0.59) K/uL Eos # (Auto) 0.29 (0.00-0.50) K/uL Baso # (Auto) 0.06 (0.00-0.20) K/uL Immature Gran # (Auto) 0.06 (0.01-0.20) K/uL PT 10.5 (9.0-12.0) Seconds INR 1.0 (0.9-1.1) Sodium 138 (136-145) mmol/L Potassium 4.1 (3.5-5.1) mmol/L Chloride 106 (98-107) mmol/L Carbon Dioxide 27 (21-32) mmol/L Anion Gap 5 (3-11) BUN 19 (6-23) mg/dl Creatinine 0.97 (0.6-1.4) mg/dl Est Cr Clr Drug Dosing 103.5 ml/min eGFR 86.63 BUN/Creatinine Ratio 19.6 (10-20) Glucose 97 (70-99(Fasting)) mg/dl Calcium 9.5 (8.6-10.3) mg/dl Total Bilirubin 0.4 (0.2-1.0) mg/dl AST 20 (13-39) U/L ALT 23 (7-52) U/L Alkaline Phosphatase 53 (34-104) U/L Troponin I High Sens 107.6 H* (0-20) pg/ml Total Protein 6.7 (6.0-8.3) gm/dl Albumin 4.1 (3.4-5.0) gm/dl Globulin 2.6 (2.5-4.0) gm/dl Albumin/Globulin Ratio 1.6 (0.9-2) Lipase 33 (11-82) U/L Administered Medications Lactated Ringer's (Lr) 1,000 mls @ 80 mls/hr IV .[id number] LISA Stop: 02/16/25 13:44 Last Admin: 02/16/25 02:08 Dose: 80 mls/hr Documented By: JESSE Discontinued Medications Aspirin (Aspirin 81 Mg Chew) 324 mg PO NOW STA Stop: 02/15/25 23:43 Last Admin: 02/15/25 23:51 Dose: 324 mg Documented By: IDD Ioversol (Optiray 320 125ml) 125 ml IV ONCE ONE Stop: 02/16/25 01:46 Last Admin: 02/16/25 01:46 Dose: 118 ml Documented By: BRISA Imaging Data Radiologist's Impression: Chest X-Ray 02/15/25 23:09 Exam(s): XR CXR 1 VIEW EXAM: XR Chest, 1 View CLINICAL HISTORY: Reason for exam: Chest pain, nonspecific. TECHNIQUE: Frontal view of the chest. COMPARISON: No relevant prior studies available. FINDINGS: Lungs: No consolidation. Pleural space: No pleural effusion is seen. No pneumothorax. Heart: Heart is normal in size.. Mediastinum: There is mild uncoiling of thoracic aorta. There. Bones/joints: There are degenerative changes in the spine.. IMPRESSION: No acute pulmonary disease. Electronically signed by: Daniel Dove MD 02/16/25 02:36 AM Chest CTA 02/16/25 01:21 EXAM: CT angio chest PE protocol CLINICAL HISTORY: PE TECHNIQUE: Contiguous axial images were obtained from the neck base through the upper abdomen following intravenous administration of iodinated contrast material. Angiographic images were processed, 3D MIP images were acquired for interpretation. If IV contrast material had not been administered, the likelihood of detecting abnormalities relevant to the patient's condition would have been substantially decreased. Coronal and sagittal 3-D MIPs were likewise performed and indicated to increase the sensitivity of detectin diffuse clinically relevant pathology. CT scan was performed according to ALARA (as low as reasonable achievable). COMPARISON: None. FINDINGS: Small ground-glass nodule measuring about 5 mm is noted involving right posterior basal segment.- appears benign. Adequate contrast bolus without evidence of pulmonary embolism. The central airways are patent. Rest of lungs are clear. No pleural effusion. The heart, aorta, and pulmonary arteries are of normal size and configuration. There are no appreciable coronary artery and aortic atherosclerotic calcifications. No pericardial effusion is identified. The thyroid is unremarkable. No mediastinal, hilar, or axillary lymphadenopathy is noted. No suspicious lytic or sclerotic osseous lesions are identified. IMPRESSION: No evidence of pulmonary embolism. Small ground-glass nodule measuring about 5 mm is noted involving right posterior basal segment.- appears benign. Electronically signed by Tristen Solis 02-16-2025 02:30 AM Discharge Plan Visit Data Chief Complaint: Cardiac Assessment Stated Complaint: HEAVINESS IN CHEST, SHORTNESS OF BREATH, FATIGUE ED Provider: Michael Belcher Discharge Problem: Chest pain, Elevated troponin Patient Disposition: Being Evaluated by Hospitalist Condition: Fair Discharge Instructions Interventions: ED Discharge Assessment Last Done: 02/16/25 02:12
[2025-02-15] MEDS: ASPIRIN 81 MG CHEW PO STA (23:51)
[2025-02-15 23:59] LABS: Hematocrit (blood only) 44.8 % (42.0-52.0); Hemoglobin 14.9 g/dl (14.0-18.0); Immature Granulocytes # (auto) 0.06 K/uL (0.01-0.20); Immature Granulocytes % (auto) 0.6 %; Mean Corpuscular Hemoglobin 29.6 pg (25.0-34.0); Mean Corpuscular Volume 89.1 fL (80.0-100.0); Platelet Count 188 K/uL (130-400); RDW Standard Deviation 43.4 fL (36.4-46.3); Red Blood Count 5.03 M/uL (4.70-6.10); White Blood Count 10.34 K/ul (4.8-10.8)
[2025-02-16 00:15] LABS: Alanine Aminotransferase 23.0 U/L (7-52); Albumin Globulin Ratio 1.6 (0.9-2); Alkaline Phosphatase 53.0 U/L (34-104); Anion Gap 5.0 (3-11); Bilirubin,Total 0.4 mg/dl (0.2-1.0); Blood Urea Nitrogen 19.0 mg/dl (6-23); Calcium 9.5 mg/dl (8.6-10.3); Carbon Dioxide 27.0 mmol/L (21-32); Chloride 106.0 mmol/L (98-107); Creatinine Clr Calc Pharmacy 103.5 ml/min; Globulin 2.6 gm/dl (2.5-4.0); Glucose 97.0 mg/dl (70-99(Fasting)); Lipase 33.0 U/L (11-82); Potassium 4.1 mmol/L (3.5-5.1); Sodium 138.0 mmol/L (136-145); Total Protein 6.7 gm/dl (6.0-8.3)
[2025-02-16 00:25] LABS: INR 1.0 (0.9-1.1); Prothrombin Time 10.5 Seconds (9.0-12.0)
--- NOTE | 2025-02-16 01:30 | History & Physical Report ---
Date of Service February 16, 2025 Assessment & Plan (1) Elevated troponin: (2) Chest pain: (3) Recurrent deep vein thrombosis (DVT) of lower extremity: (4) Coronary artery calcification seen on CAT scan: (5) Hx pulmonary embolism: Plan The patient is a 64-year-old male with a past medical history including pulmonary embolism 2019 treated with warfarin for 6 months, right lower extremity DVT for which she was started on Eliquis about 6 months ago, prediabetes, SNHL bilaterally, dyslipidemia, CAD, postconcussive syndrome, history of multiple concussions, AMRIK, BPH, and hypertension. He presents to the emergency department with 3 weeks of ongoing left parasternal chest discomfort, which is worsened over the past 24 hours or so. He is referred to the hospital service for further evaluation and treatment. Elevated troponin/hypertension/coronary artery calcification seen on CT- The patient will be admitted to telemetry for serial cardiac enzymes, serial EKG's, cardiac rhythm monitoring and a 2-D echocardiogram with Dopplers. Initial troponin 107.6 with follow-up 102.5 Given aspirin 324 mg in the ED Aspirin 81 mg every morning EKG showing nonspecific ST-T changes laterally Continue amlodipine 5 mg daily, losartan 50 mg p.o. twice daily LR at 80 mL/h x 1 L Consult cardiology Pulmonary embolism 2019/recurrent right lower extremity DVT- He was on warfarin for initial PE x 6 months Has been on Eliquis for approximately 6 months when asymptomatic right lower extremity DVT was found CTA PE protocol was negative for PE this evening Continue Eliquis Chronic venous insufficiency/status post treatment by vascular left lower extremity- Temporarily holding furosemide Hyperlipidemia- Continue atorvastatin History of Present Illness Chief Complaint: The patient presents to the emergency department with 3 weeks of persistent left sided chest pain, which worsened over the past 24 hours. He reports that the pain has been worse with exertion. He occasionally gets lightheaded when trying to exert himself, and feels his exercise capacity has worsened due to these concerns. He does have issues with lower extremity venous insufficiency, he has been following with vascular. He does report taking his Eliquis and other medications as directed. Primary Care Provider: Eric Chen DO The patient is a 64-year-old male with a past medical history including pulmonary embolism 2019 treated with warfarin for 6 months, right lower extremity DVT for which she was started on Eliquis about 6 months ago, prediabetes, SNHL bilaterally, dyslipidemia, CAD, postconcussive syndrome, history of multiple concussions, AMRIK, BPH, and hypertension. He presents to the emergency department with 3 weeks of ongoing left parasternal chest discomfort, which is worsened over the past 24 hours or so. He is referred to the hospital service for further evaluation and treatment. Allergies Allergy/AdvReac Type Severity Reaction Status Date / Time No Known Drug Allergies Allergy . Verified 02/16/25 01:15 Home Medications Medication Instructions Recorded Confirmed Type albuterol sulfate 90 mcg/actuation 2 puff inhalation Q6H PRN 07/04/20 02/16/25 Rx aerosol inhaler shortness of breath or wheezing #18 grams cholecalciferol (vitamin D3) 50 50 mcg PO BID 05/12/23 02/16/25 History mcg (2,000 unit) capsule diclofenac sodium 1 % topical gel 4 g topical QID PRN ankle pain 09/12/24 02/16/25 Rx #200 grams atorvastatin 10 mg tablet 10 mg PO QPM #90 tabs 09/15/24 02/16/25 Rx apixaban 5 mg tablet (Eliquis) 5 mg PO BID #60 tabs 10/23/24 02/16/25 Rx furosemide 20 mg tablet (Lasix) 20 mg PO DAILY #30 tabs 10/23/24 02/16/25 Rx methocarbamol 500 mg tablet 500 mg PO TID PRN muscle spasm #90 12/14/24 02/16/25 Rx tabs losartan 50 mg tablet 50 mg PO BID #180 tabs 12/25/24 02/16/25 Rx amlodipine 5 mg tablet (Norvasc) 5 mg PO QAM #90 tabs 12/26/24 02/16/25 Rx trazodone 50 mg tablet 50 mg PO HS PRN Sleep #30 tabs 01/06/25 02/16/25 Rx tramadol 50 mg tablet 50 - 100 mg (1 - 2 x 50 mg) PO QID 01/25/25 02/16/25 Rx PRN pain #120 tabs Past Med/Surg History Problem List (Updated 02/16/25 @ 00:29 by Michael Belcher M.D.) Elevated troponin (Acute) Chest pain (Acute) Cough Right ankle strain Right foot pain Prediabetes diet controlled Left knee DJD Sensorineural hearing loss of both ears SOB (shortness of breath) Recurrent deep vein thrombosis (DVT) of lower extremity History of surgery on arm Right leg swelling Bronchitis Ulnar neuropathy at elbow of right upper extremity Right carpal tunnel syndrome Varicose veins of left lower extremity with pain HERRERA (dyspnea on exertion) Atherogenic dyslipidemia Palpitations Venous reflux Coronary artery calcification seen on CAT scan Pulmonary nodule Varicose veins of left thigh Trigger finger (acquired) S/P TURP History of total left hip replacement Left hip pain 04/08/23 Left ankle pain 04/06/23 Cellulitis 04/06/23 Left foot pain 04/06/23 Migraine Postural lightheadedness 11/17/22 Post concussive syndrome Elevated blood sugar Vitamin D deficiency Memory loss 09/26/21 Elevated PSA Restless legs Facet arthritis, degenerative, cervical spine H/O multiple concussions Cervicogenic headache 07/28/21 Cervical pain Headache 05/20/21 Insomnia Ulnar neuropathy at elbow Numbness of left hand 04/04/21 Tinnitus of left ear Asymmetrical left sensorineural hearing loss AMRIK (obstructive sleep apnea) Sensorineural hearing loss (SNHL) of left ear with restricted hearing of right ear Tinnitus BPH (benign prostatic hyperplasia) Right knee DJD (Chronic) History of knee replacement, total (Chronic) RT Umbilical hernia (Chronic) Obesity (Chronic) Numbness and tingling in left arm (Chronic) resolved Headache (Chronic) 05/19/21 Hypertension (Chronic) Medical History GERD (gastroesophageal reflux disease) Edema Palpitations Hx of Lyme disease (~2020) Hx pulmonary embolism (~2019) Post concussion syndrome Arthritis History of COVID-19 (~06/2020) Hx of vertigo Tinnitus, bilateral AMRIK (obstructive sleep apnea) HTN (hypertension) Surgical History Hx of varicose veins History of total right knee replacement Hx of surgical procedure Hx of umbilical hernia repair History of carpal tunnel surgery of left wrist Hx of transurethral resection of prostate Hx of repair of left rotator cuff Hx of prostate biopsy History of colonoscopy History of tooth extraction History of ankle surgery History of tonsillectomy and adenoidectomy H/O vasectomy History of left hip replacement Family History Father Hearing loss Heart disease Cancer of kidney Pulmonary embolism Hypertension Sister Myocardial infarction Pacemaker Mother Hearing loss Hypertension Stroke Alzheimer disease Other No family history of adverse response to anesthesia Denies family history of Prostate cancer Social History Smoking Status: Never smoker Second Hand Exposure: No; Do You Dip or Chew Tobacco: No; Hx Alcohol Use: No Hx Substance Use: No Preferred Language: Tamazight Communication Ability: Effective Security Assurance Specialist Required: No Beliefs That Will Affect Care: None marital status: Current Living Situation: Spouse Current Living Situation Comment: AND MOTHER N LAW current occupational status: employed 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 How many Children do You have: 2 other: Very active at work Feels Safe at Home: Yes Safety Concerns: Feels Safe At This Time Childhood Exposure to Second-Hand Smoke: No Diet: regular caffeine: Yes Dental Care, Regularly: Yes Physical Activity Frequency: Daily Seatbelt Use: always Sunscreen Use: Yes Assistive Devices: Glasses and Hearing Aid - Bilateral Review of Systems Review of Systems: The patient denies palpitations, cough, lower extremity swelling, sore throat, fevers, chills, sweats, fatigue, nausea, vomiting, diarrhea , constipation, abdominal pain, pelvic pain, blood in urine or stool, dysuria, urinary frequency or urgency, memory loss, loss of consciousness, rash, abnormal bruising or bleeding, imbalance, focal or generalized weakness, numbness or tingling in arms or legs, generalized arthralgias or myalgias, back or neck pain, or night sweats. The review of systems is otherwise negative other than for that already noted above, and at least 10 systems have been reviewed. Physical Exam Physical Exam: The patient is awake, alert and oriented 3, well developed and well nourished, normocephalic and atraumatic, lying in bed and in no acute distress. HEENT--PERRL, EOMI, mucous membranes and oropharynx normal Neck--supple. No JVD. No bruits. Thyroid normal, trachea midline, no adenopathy. Heart--normal S1 and S2. No murmurs, rubs or gallops. Lungs--clear bilaterally, no respiratory distress, no accessory muscle use. Abdomen--normal bowel sounds and soft. Nontender. Nondistended, Extremities--No edema. Chronic venous stasis changes Dermatologic--normal skin turgor, normal color, no abnormal lymph nodes, Neurologic--cranial nerves II through XII grossly intact. Rheumatologic--normal range of motion. Psychiatric--normal affect. Results & Data Results & Data Vital Signs (Past 12 Hours) Vital Signs Temp Pulse Resp BP Pulse Ox O2 Del Method 02/16/25 00:55 60 18 97 Room Air 02/15/25 23:45 62 02/15/25 23:30 97 Room Air 02/15/25 22:57 36.7 C 81 20 144/85 H 98 Room Air Laboratory Results Laboratory Results WBC 9.32 K/ul (4.8-10.8) 02/16/25 02:12 RBC 4.72 M/uL (4.70-6.10) 02/16/25 02:12 Hgb 13.9 g/dl (14.0-18.0) L 02/16/25 02:12 Hct 42.5 % (42.0-52.0) 02/16/25 02:12 MCV 90.0 fL (80.0-100.0) 02/16/25 02:12 MCH 29.4 pg (25.0-34.0) 02/16/25 02:12 MCHC 32.7 g/dL (32.0-36.0) 02/16/25 02:12 RDW Std Deviation 44.1 fL (36.4-46.3) 02/16/25 02:12 RDW Coeff of Finesse 13.4 % (11.5-14.5) 02/16/25 02:12 Plt Count 172 K/uL (130-400) 02/16/25 02:12 MPV 9.9 fL (9.4-12.4) 02/16/25 02:12 Immature Gran % (Auto) 0.6 % 02/16/25 02:12 Neut % (Auto) 50.1 % 02/16/25 02:12 Lymph % (Auto) 36.7 % 02/16/25 02:12 [place] % (Auto) 9.4 % 02/16/25 02:12 Eos % (Auto) 2.7 % 02/16/25 02:12 Baso % (Auto) 0.5 % 02/16/25 02:12 Neut # (Auto) 4.66 K/uL (1.40-6.50) 02/16/25 02:12 Lymph # (Auto) 3.42 K/uL (1.20-3.40) H 02/16/25 02:12 [place] # (Auto) 0.88 K/uL (0.11-0.59) H 02/16/25 02:12 Eos # (Auto) 0.25 K/uL (0.00-0.50) 02/16/25 02:12 Baso # (Auto) 0.05 K/uL (0.00-0.20) 02/16/25 02:12 Immature Gran # (Auto) 0.06 K/uL (0.01-0.20) 02/16/25 02:12 PT 10.5 Seconds (9.0-12.0) 02/15/25 23:43 INR 1.0 (0.9-1.1) 02/15/25 23:43 Sodium 137 mmol/L (136-145) 02/16/25 02:08 Potassium 3.8 mmol/L (3.5-5.1) 02/16/25 02:08 Chloride 104 mmol/L (98-107) 02/16/25 02:08 Carbon Dioxide 28 mmol/L (21-32) 02/16/25 02:08 Anion Gap 5 (3-11) 02/16/25 02:08 BUN 19 mg/dl (6-23) 02/16/25 02:08 Creatinine 0.99 mg/dl (0.6-1.4) 02/16/25 02:08 Est Cr Clr Drug Dosing 101.4 ml/min 02/16/25 02:08 eGFR 84.54 02/16/25 02:08 BUN/Creatinine Ratio 19.2 (10-20) 02/16/25 02:08 Glucose 91 mg/dl (70-99(Fasting)) 02/16/25 02:08 Calcium 9.0 mg/dl (8.6-10.3) 02/16/25 02:08 Phosphorus 4.4 mg/dl (2.5-4.9) 02/16/25 02:08 Magnesium 2.0 mg/dl (1.7-2.4) 02/16/25 02:08 Total Bilirubin 0.4 mg/dl (0.2-1.0) 02/15/25 23:43 AST 20 U/L (13-39) 02/15/25 23:43 ALT 23 U/L (7-52) 02/15/25 23:43 Alkaline Phosphatase 53 U/L (34-104) 02/15/25 23:43 Troponin I High Sens 102.5 pg/ml (0-20) H* 02/16/25 02:08 Total Protein 6.7 gm/dl (6.0-8.3) 02/15/25 23:43 Albumin 3.8 gm/dl (3.4-5.0) 02/16/25 02:08 Globulin 2.6 gm/dl (2.5-4.0) 02/15/25 23:43 Albumin/Globulin Ratio 1.6 (0.9-2) 02/15/25 23:43 Lipase 33 U/L (11-82) 02/15/25 23:43 Impressions Chest X-Ray 02/15/25 23:09 Exam(s): XR CXR 1 VIEW EXAM: XR Chest, 1 View CLINICAL HISTORY: Reason for exam: Chest pain, nonspecific. TECHNIQUE: Frontal view of the chest. COMPARISON: No relevant prior studies available. FINDINGS: Lungs: No consolidation. Pleural space: No pleural effusion is seen. No pneumothorax. Heart: Heart is normal in size.. Mediastinum: There is mild uncoiling of thoracic aorta. There. Bones/joints: There are degenerative changes in the spine.. IMPRESSION: No acute pulmonary disease. Electronically signed by: Daniel Dove MD 02/16/25 02:36 AM Chest CTA 02/16/25 01:21 EXAM: CT angio chest PE protocol CLINICAL HISTORY: PE TECHNIQUE: Contiguous axial images were obtained from the neck base through the upper abdomen following intravenous administration of iodinated contrast material. Angiographic images were processed, 3D MIP images were acquired for interpretation. If IV contrast material had not been administered, the likelihood of detecting abnormalities relevant to the patient's condition would have been substantially decreased. Coronal and sagittal 3-D MIPs were likewise performed and indicated to increase the sensitivity of detectin diffuse clinically relevant pathology. CT scan was performed according to ALARA (as low as reasonable achievable). COMPARISON: None. FINDINGS: Small ground-glass nodule measuring about 5 mm is noted involving right posterior basal segment.- appears benign. Adequate contrast bolus without evidence of pulmonary embolism. The central airways are patent. Rest of lungs are clear. No pleural effusion. The heart, aorta, and pulmonary arteries are of normal size and configuration. There are no appreciable coronary artery and aortic atherosclerotic calcifications. No pericardial effusion is identified. The thyroid is unremarkable. No mediastinal, hilar, or axillary lymphadenopathy is noted. No suspicious lytic or sclerotic osseous lesions are identified. IMPRESSION: No evidence of pulmonary embolism. Small ground-glass nodule measuring about 5 mm is noted involving right posterior basal segment.- appears benign. Electronically signed by Tristen Solis 02-16-2025 02:30 AM Code Status & VTE Plan Code Status Full code VTE Prophylaxis Plan VTE Prophylaxis will be ordered: Yes PG Care Time/CCT Total # of Minutes Spent Total Time Spent with Patient: Total time spent is greater than 50% in coordination of care (as documented) at patient's floor/unit and/or counseling patient: Coding Level of Care Code 75958 INT INP/OBS CARE 3/75MIN Diagnoses Elevated troponin R79.89 Chest pain R07.9 Recurrent deep vein thrombosis (DVT) of lower extremity I82.409 Coronary artery calcification seen on CAT scan I25.10 Hx pulmonary embolism Z86.711
[2025-02-16] MEDS: OPTIRAY 320 125ml IV ONE (01:46)
[2025-02-16] MEDS: LACTATED RINGER'S 1,000 ML IV SCH (02:08)
[2025-02-16] MEDS ORDERED: ONDANSETRON INJ 2 MG/ML 2 ML VIAL IV PRN (02:12)
--- NOTE | 2025-02-16 02:31 | CT Scan Report ---
EXAM: CT angio chest PE protocol CLINICAL HISTORY: PE TECHNIQUE: Contiguous axial images were obtained from the neck base through the upper abdomen following intravenous administration of iodinated contrast material. Angiographic images were processed, 3D MIP images were acquired for interpretation. If IV contrast material had not been administered, the likelihood of detecting abnormalities relevant to the patient's condition would have been substantially decreased. Coronal and sagittal 3-D MIPs were likewise performed and indicated to increase the sensitivity of detectin diffuse clinically relevant pathology. CT scan was performed according to ALARA (as low as reasonable achievable). COMPARISON: None. FINDINGS: Small ground-glass nodule measuring about 5 mm is noted involving right posterior basal segment.- appears benign. Adequate contrast bolus without evidence of pulmonary embolism. The central airways are patent. Rest of lungs are clear. No pleural effusion. The heart, aorta, and pulmonary arteries are of normal size and configuration. There are no appreciable coronary artery and aortic atherosclerotic calcifications. No pericardial effusion is identified. The thyroid is unremarkable. No mediastinal, hilar, or axillary lymphadenopathy is noted. No suspicious lytic or sclerotic osseous lesions are identified. IMPRESSION: No evidence of pulmonary embolism. Small ground-glass nodule measuring about 5 mm is noted involving right posterior basal segment.- appears benign. Electronically signed by Tristen Solis 02-16-2025 02:30 AM
--- NOTE | 2025-02-16 02:37 | XRay Report ---
Exam(s): XR CXR 1 VIEW EXAM: XR Chest, 1 View CLINICAL HISTORY: Reason for exam: Chest pain, nonspecific. TECHNIQUE: Frontal view of the chest. COMPARISON: No relevant prior studies available. FINDINGS: Lungs: No consolidation. Pleural space: No pleural effusion is seen. No pneumothorax. Heart: Heart is normal in size.. Mediastinum: There is mild uncoiling of thoracic aorta. There. Bones/joints: There are degenerative changes in the spine.. IMPRESSION: No acute pulmonary disease. Electronically signed by: Daniel Dove MD 02/16/25 02:36 AM
[2025-02-16 02:49] LABS: Anion Gap 5.0 (3-11); Blood Urea Nitrogen 19.0 mg/dl (6-23); Calcium 9.0 mg/dl (8.6-10.3); Carbon Dioxide 28.0 mmol/L (21-32); Chloride 104.0 mmol/L (98-107); Creatinine Clr Calc Pharmacy 101.4 ml/min; Glucose 91.0 mg/dl (70-99(Fasting)); Magnesium 2.0 mg/dl (1.7-2.4); Potassium 3.8 mmol/L (3.5-5.1); Sodium 137.0 mmol/L (136-145)
[2025-02-16 03:33] LABS: Hematocrit (blood only) 42.5 % (42.0-52.0); Hemoglobin 13.9 g/dl (14.0-18.0); Immature Granulocytes # (auto) 0.06 K/uL (0.01-0.20); Immature Granulocytes % (auto) 0.6 %; Mean Corpuscular Hemoglobin 29.4 pg (25.0-34.0); Mean Corpuscular Volume 90.0 fL (80.0-100.0); Platelet Count 172 K/uL (130-400); RDW Standard Deviation 44.1 fL (36.4-46.3); Red Blood Count 4.72 M/uL (4.70-6.10); White Blood Count 9.32 K/ul (4.8-10.8)
[2025-02-16] MEDS: ASPIRIN 81 MG ECTAB PO SCH (08:38)
--- NOTE | 2025-02-16 10:38 | XCELERA ---
[id number]
--- NOTE | 2025-02-16 10:51 | Cardiology Consultation ---
Date of Consultation February 16, 2025 Assessment & Plan (1) Chest pain: -History has both typical and atypical features of classic angina pectoris. -Numerous cardiac risk factors. -Coronary artery calcifications on CT scan. -Mildly elevated troponin. -Recommend cardiac catheterization today. -Dr. Luke is aware. (2) Elevated troponin: -High-sensitivity troponin peaked at 107 on presentation. -Downtrending. (3) Hypertension: -Adequate control on current regimen. (4) Hypercholesterolemia: -LDL cholesterol well-controlled. -Continue atorvastatin. (5) Coronary artery calcification: -Extensive coronary artery calcifications on recent CT scan. History of Present Illness Reason for Consultation: Mr. Chang is a 64-year-old male admitted yesterday with a chest pain syndrome. This consultation was ordered to assist in his cardiac management. Of note, the patient was previously seen by Dr. Richards in October 2023. The patient was in his usual state of health until approximately 3 weeks prior to presentation. He developed a "dull ache" which was present constantly. However, with physical activity, he has "dull ache" became much worse, and returned to its baseline with rest. There was associated shortness of breath. No nausea, vomiting, or diaphoresis. Over the same timeframe, the patient has noticed profound exercise intolerance. He did have a CT scan of the chest performed in April 2024 which noted extensive coronary artery calcifications. A fasting lipid panel performed last month noted excellent control with an LDL cholesterol 55, and an HDL of 46. Currently, patient is resting comfortably in bed but does note a "dull ache" in the substernal chest region. Past medical and surgical history 1. Hypertension 2. Hypercholesterolemia 3. Hyperglycemia 4. Recurrent DVT/pulmonary embolism 5. Obstructive sleep apnea 6. DJD 7. Hearing deficit 8. Migraine headaches 9. Chronic venous insufficiency 10. Vitamin D deficiency 11. Umbilical hernia repair 12. Left THR 13. Right TKR 14. TURP 15. Left lower extremity vein ablation Social history and lives with his No tobacco Social alcohol Family history No early coronary artery disease Review of system A 10 point review of system was undertaken and negative except that described above. Attending Physician: Rios Nagy MD Allergies Allergy/AdvReac Type Severity Reaction Status Date / Time No Known Drug Allergies Allergy . Verified 02/16/25 01:15 Home Medications Medication Instructions Recorded Confirmed Type albuterol sulfate 90 mcg/actuation 2 puff inhalation Q6H PRN 07/04/20 02/16/25 Rx aerosol inhaler shortness of breath or wheezing #18 grams cholecalciferol (vitamin D3) 50 50 mcg PO BID 05/12/23 02/16/25 History mcg (2,000 unit) capsule diclofenac sodium 1 % topical gel 4 g topical QID PRN ankle pain 09/12/24 02/16/25 Rx #200 grams atorvastatin 10 mg tablet 10 mg PO QPM #90 tabs 09/15/24 02/16/25 Rx apixaban 5 mg tablet (Eliquis) 5 mg PO BID #60 tabs 10/23/24 02/16/25 Rx furosemide 20 mg tablet (Lasix) 20 mg PO DAILY #30 tabs 10/23/24 02/16/25 Rx methocarbamol 500 mg tablet 500 mg PO TID PRN muscle spasm #90 12/14/24 02/16/25 Rx tabs losartan 50 mg tablet 50 mg PO BID #180 tabs 12/25/24 02/16/25 Rx amlodipine 5 mg tablet (Norvasc) 5 mg PO QAM #90 tabs 12/26/24 02/16/25 Rx trazodone 50 mg tablet 50 mg PO HS PRN Sleep #30 tabs 01/06/25 02/16/25 Rx tramadol 50 mg tablet 50 - 100 mg (1 - 2 x 50 mg) PO QID 01/25/25 02/16/25 Rx PRN pain #120 tabs Patient History Medical History GERD (gastroesophageal reflux disease) Edema Palpitations Hx of Lyme disease (~2020) Hx pulmonary embolism (~2019) Post concussion syndrome Arthritis History of COVID-19 (~06/2020) Hx of vertigo Tinnitus, bilateral AMRIK (obstructive sleep apnea) HTN (hypertension) Surgical History Hx of varicose veins History of total right knee replacement Hx of surgical procedure Hx of umbilical hernia repair History of carpal tunnel surgery of left wrist Hx of transurethral resection of prostate Hx of repair of left rotator cuff Hx of prostate biopsy History of colonoscopy History of tooth extraction History of ankle surgery History of tonsillectomy and adenoidectomy H/O vasectomy History of left hip replacement Family History Father Hearing loss Heart disease Cancer of kidney Pulmonary embolism Hypertension Sister Myocardial infarction Pacemaker Mother Hearing loss Hypertension Stroke Alzheimer disease Other No family history of adverse response to anesthesia Denies family history of Prostate cancer Social History Smoking Status: Never smoker Second Hand Exposure: No; Do You Dip or Chew Tobacco: No; Hx Alcohol Use: No Hx Substance Use: No Preferred Language: Qatari Communication Ability: Effective Enologist Required: No Beliefs That Will Affect Care: None marital status: Current Living Situation: Spouse Current Living Situation Comment: AND MOTHER N LAW current occupational status: employed 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 HEENT exam is negative. Neck reveals normal carotid upstrokes without bruits. Jugular venous pressure is flat at 90. There is no thyromegaly. Cardiovascular exam reveals a regular rhythm with a normal S1 and S2. Heart sounds are distant. No obvious murmurs. Lungs are clear without rales, rhonchi, or wheezes. Abdomen is soft without bruits. Extremities reveal intact radial artery and posterior tibial pulses bilaterally. There is is trace peripheral edema. Results & Data Vital Signs (Past 12 Hours) Vital Signs Temp Pulse Pulse Resp BP BP Pulse Ox 02/16/25 06:30 80 18 138/61 97 02/16/25 05:26 55 L 18 130/71 100 02/16/25 02:30 85 16 157/70 H 98 02/16/25 01:09 65 16 136/96 95 02/16/25 00:55 60 18 97 02/15/25 23:45 62 02/15/25 23:30 97 02/15/25 22:57 36.7 C 81 20 144/85 H 98 O2 Del Method O2 Flow Rate 02/16/25 06:30 Nasal Cannula 1 02/16/25 05:26 Nasal Cannula 2 02/16/25 02:30 Room Air 02/16/25 01:09 02/16/25 00:55 Room Air 02/15/25 23:45 02/15/25 23:30 Room Air 02/15/25 22:57 Room Air PG Care Time/CCT Total # of Minutes Spent Total Time Spent with Patient: Total time spent is greater than 50% in coordination of care (as documented) at patient's floor/unit and/or counseling patient: Coding Level of Care Code 39783 INT INP/OBS CARE 3/75MIN Diagnoses Chest pain R07.9 Elevated troponin R79.89 Hypertension I10 Hypercholesterolemia E78.00 Coronary artery calcification I25.10
--- NOTE | 2025-02-16 11:22 | Electrocardiogram Report ---
Test Reason : Blood Pressure : */* mmHG Vent. Rate : 64 BPM Atrial Rate : 64 BPM P-R Int : 194 ms QRS Dur : 94 ms QT Int : 370 ms P-R-T Axes : 62 21 -64 degrees QTcB Int : 381 ms Normal sinus rhythm Nonspecific ST and T wave abnormality Abnormal ECG When compared with ECG of 11-Sep-2021 23:09, ST now depressed in Inferior leads Nonspecific T wave abnormality now evident in Inferior leads Nonspecific T wave abnormality now evident in Lateral leads Confirmed by Denis Calderón ([id number]) on 02/16/2025 11:22:30 AM Referred By: REFERRED SELF Confirmed By: Denis Calderón
--- NOTE | 2025-02-16 15:50 | Pre Anesthesia Assessment ---
Date of Service February 16, 2025 Pre Sedation Assessment Vital Signs Temp Pulse Pulse Resp BP BP Pulse Ox 02/16/25 12:50 58 L 17 149/73 H 92 02/16/25 12:17 62 18 185/81 H 93 02/16/25 12:00 53 L 17 184/75 H 94 02/16/25 08:30 66 17 145/66 H 94 02/16/25 06:30 80 18 138/61 97 02/16/25 05:26 55 L 18 130/71 100 02/16/25 02:30 85 16 157/70 H 98 02/16/25 01:09 65 16 136/96 95 02/16/25 00:55 60 18 97 02/15/25 23:45 62 02/15/25 23:30 97 02/15/25 22:57 98.1 F 81 20 144/85 H 98 O2 Del Method O2 Flow Rate 02/16/25 12:50 Room Air 02/16/25 12:17 Room Air 02/16/25 12:00 Room Air 02/16/25 08:30 Room Air 02/16/25 06:30 Nasal Cannula 1 02/16/25 05:26 Nasal Cannula 2 02/16/25 02:30 Room Air 02/16/25 01:09 02/16/25 00:55 Room Air 02/15/25 23:45 02/15/25 23:30 Room Air 02/15/25 22:57 Room Air Cardiovascular + regular rate Pre-Sedation Airway Assessment Smoking Status: Never smoker Short, Thick Neck: Yes Thyromental Distance: > or= 3.5 Finger Breadths Oral Cavity: + WNL Mallampati Class: II ASA: ASA2E NPO Status Date of Last Intake of Fluids: 02/16/25 Time of Last Intake of Fluids: 07:00 Date of Last Intake of Solid Food: 02/16/25 Time of Last Intake of Solid Foods: 07:00 Procedure Planning Contraindications for Sedation: none Current Medications Reviewed: Yes Notes The planned sedation has been discussed with the patient. Informed Consent was obtained. I have identified the patient, determined the appropriateness of sedation and have assessed the patient immediately prior to the procedure. All medicine(s) and interventions are by my order.
[2025-02-16] MEDS: IODIXANOL (VISIPAQUE) 320 MG/ML 100ML IV ONE (16:03)
[2025-02-16] MEDS: niCARdipine 2,000 MCG/20 ML SYR ONE (16:04)
[2025-02-16] MEDS: NITROGLYCERIN/D5W 100MCG/ML 20ML SYR ONE (16:04)
--- NOTE | 2025-02-16 16:06 | Hospitalist Progress Note ---
Date of Service February 16, 2025 Assessment & Plan (1) Elevated troponin: (2) Chest pain: (3) Recurrent deep vein thrombosis (DVT) of lower extremity: (4) Coronary artery calcification seen on CAT scan: (5) Hx pulmonary embolism: Plan The patient is a 64-year-old male with a past medical history including pulmonary embolism 2019 treated with warfarin for 6 months, right lower extremity DVT for which she was started on Eliquis about 6 months ago, prediabetes, SNHL bilaterally, dyslipidemia, CAD, postconcussive syndrome, history of multiple concussions, AMRIK, BPH, and hypertension. He presents to the emergency department with 3 weeks of ongoing left parasternal chest discomfort, which is worsened over the past 24 hours or so. He is referred to the hospital service for further evaluation and treatment. Chest pain, NSTEMI Patient with 3 weeks of both a atypical/chronic chest pain component with concerning progressive anginal features including worsening dyspnea and chest pain on exertion progressing to now with minimal activity. This exertional component resolves with rest Echo 02/16/2025: LVSF normal, mild concentric LVH, LVEF 60-65%. No change compared to 2023 for EKG on ER with nonspecific lateral STT wave changes. Troponin elevated, peaked at 107, downtrend Received full dose aspirin in the ER - Taken for catheterization. S/p successful PCI of mid circumflex with single GARRETT, angioplasty of jailed OM 2. 60-70% proximal RCA occlusion, 100% chronic occlusion of right posterior AV branch after takeoff of the PDA. 90% mid circumflex at bifurcation with OM 2. 95% ostial OM2 stenosis. Continue DAPT Patient is mildly hypertensive on reassessment. Metoprolol titrate 12.5 mg twice daily started, adjust dose as needed/tolerated and if tolerating well consolidate to succinate on discharge. History of PE PE 2019, recurrent right lower extremity DVT Patient was treated with warfarin for his initial PE. Subsequently after completing treatment was found to have a lower extremity DVT and was started on Eliquis Continue Eliquis Will need lifelong anticoagulation due to recurrent thromboembolism CTAPE on admission negative for PE Chronic venous insufficiency With left lower extremity ablation Lasix temporarily held Minimal edema on admission Hyperlipidemia Continue statin DVT prophylaxis: Anticoagulated Disposition: PCU CODE STATUS: Full code Diet: Heart healthy Admission and Anticipated Discharge Date Admission Date: February 16, 2025 Subjective Seen at the bedside. Donnie reports that he has hadSome chronic chest pain intermittently in the past however in the last month he has had a constant achy pain in his chest which worsens with exertion, resolves with rest, and has associated dyspnea/shortness of breath. He notes that this feeling of breathlessness and chest discomfort has gotten worse lately and has now began to occur with minimal amounts of exertion. At time of bedside assessment he denies chest pain/chest pressure, reports that the achy component of his chest pain which has been present for several weeks is still slightly there no pain on deep breathing. No lightheadedness/dizziness. He reports he does get some swelling in his legs sometimes however does not feel they are swollen currently. He reports he has had some chronic shortness of breath while laying flat but does not think this has changed at all recently. Physical Exam Physical Exam: General: A&Ox3. NAD. Cooperative. HEENT: Atraumatic, normocephalic. Vision and hearing grossly intact Pulm: CTAB A&P. -wheezes, -rales, -rhonchi. Symmetrical chest rise. No increase in work of breathing. No respiratory distress. Cardiac: RRR, -mrg. Radial pulses intact and symmetrical. Abdominal: Nontender, nondistended, soft. BS present. Extremities: Minimal ankle edema Results & Data Results & Data Vital Signs (Past 12 Hours) Vital Signs Pulse Pulse Resp BP BP Pulse Ox O2 Del Method 02/16/25 12:50 58 L 17 149/73 H 92 Room Air 02/16/25 12:17 62 18 185/81 H 93 Room Air 02/16/25 12:00 53 L 17 184/75 H 94 Room Air 02/16/25 08:30 66 17 145/66 H 94 Room Air 02/16/25 06:30 80 18 138/61 97 Nasal Cannula 02/16/25 05:26 55 L 18 130/71 100 Nasal Cannula O2 Flow Rate 02/16/25 12:50 02/16/25 12:17 02/16/25 12:00 02/16/25 08:30 02/16/25 06:30 1 02/16/25 05:26 2 PG Care Time/CCT Total # of Minutes Spent Total Time Spent with Patient: Total time spent is greater than 50% in coordination of care (as documented) at patient's floor/unit and/or counseling patient: Coding Level of Care Code 92410 SUB INP/OBS CARE 3/50MIN Diagnoses Elevated troponin R79.89 Chest pain R07.9 Recurrent deep vein thrombosis (DVT) of lower extremity I82.409 Coronary artery calcification seen on CAT scan I25.10 Hx pulmonary embolism Z86.711
[2025-02-16] MEDS: HEPARIN (PORCINE) 1000 UNIT/ML 10 ML (CATH LAB USE ONLY) ONE ×2 (16:47→16:52)
[2025-02-16] MEDS: MIDAZOLAM HCL 1 MG/ML 2ML VIAL ONE (16:48)
[2025-02-16] MEDS: OPTIRAY 350 ONE (16:51)
[2025-02-16] MEDS: CLOPIDOGREL BISULFATE 300 MG TAB ONE (16:52)
--- NOTE | 2025-02-16 17:11 | Post Anesthesia Assessment ---
Date of Service February 16, 2025 Post Sedation Assessment Vital Signs Temp Pulse Pulse Resp BP BP Pulse Ox 02/16/25 12:50 58 L 17 149/73 H 92 02/16/25 12:17 62 18 185/81 H 93 02/16/25 12:00 53 L 17 184/75 H 94 02/16/25 08:30 66 17 145/66 H 94 02/16/25 06:30 80 18 138/61 97 02/16/25 05:26 55 L 18 130/71 100 02/16/25 02:30 85 16 157/70 H 98 02/16/25 01:09 65 16 136/96 95 02/16/25 00:55 60 18 97 02/15/25 23:45 62 02/15/25 23:30 97 02/15/25 22:57 98.1 F 81 20 144/85 H 98 O2 Del Method O2 Flow Rate 02/16/25 12:50 Room Air 02/16/25 12:17 Room Air 02/16/25 12:00 Room Air 02/16/25 08:30 Room Air 02/16/25 06:30 Nasal Cannula 1 02/16/25 05:26 Nasal Cannula 2 02/16/25 02:30 Room Air 02/16/25 01:09 02/16/25 00:55 Room Air 02/15/25 23:45 02/15/25 23:30 Room Air 02/15/25 22:57 Room Air Recovery Score Activity: Moves 4 extremities Respiration: Deep Breath/Cough Circulation: +/-20% PreAnes Value Consciousness: Fully Awake Oxygen Saturation: O2 needed for >90% Discharge Sedation Level of Care: Fast Track Phase II
--- NOTE | 2025-02-16 17:19 | Post Operative Brief Note ---
Cardiology Brief Post Op Date of Surgery February 16, 2025 Pre & Post Diagnosis Coronary artery disease Procedure [facility] PCI to LCx Supply Aide Cesario Luke MD Packerhead Machine Operator Jules Estimated Blood Loss 25 Findings See Below 60 to 70% proximal RCA. 100% chronic occlusion of right posterior AV branch after takeoff of the PDA. 90% mid circumflex at bifurcation with OM2. Ostial OM2 95% stenosis. Circumflex provides [id number] collaterals to right PLB Successful PCI of mid circumflex with single drug-eluting stent (3.0 x 18 mm [place]; postdilated with 3.5 NC). Angioplasty to the jailed OM2 with 2.0 balloon Anesthesia Type RN Sedation Complications none Disposition Disposition: PCU
[2025-02-16] MEDS: ACETAMINOPHEN 325 MG TAB PO PRN (17:32)
[2025-02-16 19:33] VITALS: RESP 20
[2025-02-16] MEDS: LOSARTAN POTASSIUM 50 MG TAB PO SCH (19:34)
[2025-02-16] MEDS: ATORVASTATIN 40 MG TAB PO SCH (19:34)
--- NOTE | 2025-02-16 23:13 | Cardiac Catheterization ---
[facility] Data: Sanding Machine Tender Automatic Cardiac Status Clinical evaluation leading to the procedure CAD Presenation: Non STEMI Anginal Classification: CCS IV Diagnostic Physicians Name: Cesario Luke MD Closure Device Recommendations: PCI without planned CABG Cardiac Cath Procedure Full Procedure Date February 16, 2025 Pre-Procedure Diagnosis Pre-Procedure Diagnosis: Non STEMI AUC Score AUC Score: 8 Post-Procedure Diagnosis Post-Procedure Diagnosis: Severe CAD, Successful PCI and Elevated Intracardiac Pressures Procedure(s) Performed Procedure(s) Performed: Coronary Angiography, Left Heart Cath and Drug Eluting Stent Cnc Machine Operator Cesario Luke MD Sugar Cane Farm Manager(s) Jules Estimated Blood Loss Estimated Blood Loss: 30 Medication(s) Medication(s): Clopidogrel, Fentanyl, Heparin, Lidocaine 1%, Nicardipine, Nitroglycerin and Versed Summary of Findings Indication: Suspected ACS Access: 6 Fr slender right radial artery Catheters: Sage, EBU 3.5 guide Findings: LM -normal caliber, no significant disease LAD -medium caliber, mild diffuse proximal disease up to 30%, mid segment angulated with 40% disease. Distal vessel wraps around apex. Small diagonals without significant disease. Circumflex -medium caliber, proximal luminal irregularities, 95% mid segment stenosis at takeoff of OM2. Medium OM 2 with 90% ostial stenosis. Large left PLB without significant disease. Circumflex provides collaterals to right posterior lateral branches RCA -medium caliber, dominant, 60 to 70% proximal stenosis, mid segment luminal irregularities. Small RPDA without significant disease. 100% chronic total occlusion of right posterior AV branch right after takeoff of PDA. LVEDP -18 -- PCI -- Antithrombotic therapy: Heparin Procedure: Left main cannulated with EBU 3.5 guide Pre-procedure flow SIMRAN 3 [place] blue wire passed across lesion into distal circumflex/left PLB Production Material Coordinator 50 wire placed into OM 2 Mid circumflex lesion predilated with 2.5 compliant balloon Dilated lesion stented with 3.0 x 18 mm [place] drug-eluting stent OM 2 rewired with whisper wire through stent struts Stent post-dilated with 3.5 noncompliant balloon IC vasodilators administered for spasm Residual severe ostial stenosis of jailed OM 2 dilated with 2.0 balloon through stent struts Moderate residual stenosis in jailed OM 2 but SIMRAN-3 flow Post procedure SIMRAN 3 flow, stent well expanded with minimal residual stenosis and no apparent cardiac complications. Arterial Closure: TR band Summary: 1. Multivessel coronary artery disease -95% mid circumflex at bifurcation with OM2. OM2 with 90% ostial stenosis 60-70% proximal RCA. 100% chronic total occlusion of right posterior AV branch right after takeoff of PDA. Right PLB's fill from collaterals from left circumflex. 30% proximal, 40% mid LAD 2. Borderline intracardiac filling pressure (LVEDP 18) 3. Successful PCI of mid circumflex with single drug-eluting stent (3.0 x 18 mm [place]; postdilated with 3.5 NC). - Angioplasty of ostium of jailed OM2 with 2.0 balloon Recommendations: To PCU for continued monitoring Loaded with clopidogrel 600 mg in Sanding Machine Tender Automatic On discharge dual therapy with clopidogrel, Eliquis for at least 1 year Continue statin, and ASCVD risk factor modification Recommend medical management of residual CAD. If refractory symptoms in the future PCI of proximal RCA could be considered. Hemodynamics Rest Ao:: 132/73/156 Final Ao: 144/83/67 LV: 130/18 Recommendations Recommendations: PCI without planned CABG Specimens Specimens: None Radiation Exposure (mGy) 3325 Contrast (mls) 120 Anesthesia Moderate 7353-9190 Procedural Complication(s) None Disposition Sanding Machine Tender Automatic Holding/Recovery I attest to the content of the Intraoperative Record and any orders documented therein. Any exceptions are noted below. [facility] Card Cath Procedure Codes Cardiac Catheterization Procedure 1: Cardiovascular Cath Procedures: 93614 Coronaries and LHC (+/-LV) Moderate Sedation Procedure 1: Sedation/Anesthesia: 43430 Mod Sedation by the same physician;Init15 Min Child Age 5 & Up Procedure 2: Sedation/Anesthesia: 03004 Mod Sedation by the same physician; Ea [id number] Minutes Stenting Procedure 1: Cardiovascular Stent Procedures: 70407 Perc transcatheter placement of intracoronary stent(s), with ang PG Care Time/CCT Total # of Minutes Spent Total Time Spent with Patient: Total time spent is greater than 50% in coordination of care (as documented) at patient's floor/unit and/or counseling patient:
--- NOTE | 2025-02-17 07:14 | Discharge Summary ---
Discharge Summary Date of Service February 17, 2025 Principal Dx & Hospital Course #1 = Principal Diagnosis (1) Elevated troponin: (2) Chest pain: (3) Recurrent deep vein thrombosis (DVT) of lower extremity: (4) Coronary artery calcification seen on CAT scan: (5) Hx pulmonary embolism: Plan The patient is a 64-year-old male with a past medical history including pulmonary embolism 2019 treated with warfarin for 6 months, right lower extremity DVT for which she was started on Eliquis about 6 months ago, prediabetes, SNHL bilaterally, dyslipidemia, CAD, postconcussive syndrome, history of multiple concussions, AMRIK, BPH, and hypertension. He presents to the emergency department with 3 weeks of ongoing left parasternal chest discomfort, which is worsened over the past 24 hours or so. He is admitted to the hospital underwent PCI and had a single GARRETT placed. Due to as outpatient: 1: Follow-up PCP 2: Follow-up with cardiology 3: Continue DAPT for 1 year 4: Continue Eliquis for past history of VTE/PE 5: Atorvastatin dose increased to 80 mg daily. Repeat lipid check as outpatient 6: Reassess for beta-mercedes tolerability, this was not started during admission due to bradycardia Chest pain, NSTEMI Patient with 3 weeks of both a atypical/chronic chest pain component with concerning progressive anginal features including worsening dyspnea and chest pain on exertion progressing to now with minimal activity. This exertional component resolves with rest Echo 02/16/2025: LVSF normal, mild concentric LVH, LVEF 60-65%. No change compared to 2023 EKG on ER with nonspecific lateral STT wave changes. Troponin elevated, peaked at 107, downtrend Received full dose aspirin in the ER - Taken for catheterization. S/p successful PCI of mid circumflex with single GARRETT, angioplasty of jailed OM 2. 60-70% proximal RCA occlusion, 100% chronic occlusion of right posterior AV branch after takeoff of the PDA. 90% mid circumflex at bifurcation with OM 2. 95% ostial OM2 stenosis. Continue DAPT. Atorvastatin increased to 80 mg. Beta-mercedes deferred while inpatient due to intermittent bradycardia in the 50s and RCA disease. Can reassess for/benefits as outpatient cardiology follow- up Chest pain resolved following catheterization and GARRETT placement History of PE PE 2019, recurrent right lower extremity DVT Patient was treated with warfarin for his initial PE. Subsequently after completing treatment was found to have a lower extremity DVT and was started on Eliquis Continue Eliquemiliana Will need lifelong anticoagulation due to recurrent thromboembolism CTAPE on admission negative for PE Chronic venous insufficiency With left lower extremity ablation Lasix temporarily held Minimal edema on admission Hyperlipidemia Continue statin, dose increased as noted Admission HPI Per Admitting Provider The patient is a 64-year-old male with a past medical history including pulmonary embolism 2019 treated with warfarin for 6 months, right lower extremity DVT for which she was started on Eliquis about 6 months ago, prediabetes, SNHL bilaterally, dyslipidemia, CAD, postconcussive syndrome, hist ory of multiple concussions, AMRIK, BPH, and hypertension. He presents to the emergency department with 3 weeks of ongoing left parasternal chest discomfort, which is worsened over the past 24 hours or so. He is referred to the hospital service for further evaluation and treatment. Discharge Exam General: A&Ox3. NAD. Cooperative. HEENT: Atraumatic, normocephalic. Vision and hearing grossly intact. Pupils equal and reactive to light. Pulm: CTAB A&P. -wheezes, -rales, -rhonchi. Symmetrical chest rise. No increase in work of breathing. No respiratory distress. Cardiac: RRR, -mrg. Radial pulses intact and symmetrical. Abdominal: Nontender, nondistended, soft. BS present. Extremities: Right radial access site C/D/I, no overlying swelling or hematoma. Cap refill in fingertips brisk. Minimal ankle edema improved from prior Discharge Plan Discharge Items Patient Disposition: Home - Self-Care Reason For Visit: CHEST PAIN, ELEVATED TROPONIN Discharge Diagnosis: CAD, NSTEMI Condition on Discharge: Fair Activity: Resume your previous activity Non-emergency contact: Primary Care Provider Call non-emergency contact if: you have any medication questions, your symptoms worsen and your pain is not controlled Follow-up/Referrals: Cesario Luke MD [Physician] - Eric Chen DO [Primary Care Provider] - Diet: Heart Healthy Addtl Attending Provider Instructions: You are seen in the hospital for chest pain. You were taken for cardiac evaluation via catheterization and were found to have a 90-95% blockage which was treated with a single drug-eluting cardiac stent, and 1 area of narrowing was treated with balloon angioplasty. You clinically improved and had resolution of your pain following this procedure. An ultrasound of your heart showed normal pumping function/a normal ejection fraction. You have been started on aspirin and Plavix. Please take aspirin 81 mg daily, and Plavix 75 mg daily. These are antiplatelet agents that are critically important to protect your heart stent. There is a slightly increased risk of bleeding while on these medications. Please continue to take your Eliquis for history of VTE/PE. You may continue to take this along with the aspirin/Plavix regimen. If you have any significant bleeding, including black/bloody bowel movements, persistent nosebleeds or other concerning bleeding please seek prompt medical attention. A cardiac medication called metoprolol was considered for you however held during admission due to low resting heart rate. Your reporting analyst may wish to trial this medication at a low dose depending on your repeat heart rate checks and follow-up. Please discuss this medication at your follow-up cardiology appointment. Your atorvastatin dose has been changed. Your atorvastatin dose has been increased to 80 mg once daily to help lower bad cholesterol and also stabilize existing plaques and contribute to heart attacks and strokes. We should have your lipid levels rechecked periodically as an outpatient. If you develop any new or worsening symptoms including fever, chills, sweats, chest pain, chest pressure, difficulty breathing, uncontrolled nausea/vomiting, rash, wheezing, passing out or nearly passing out, bleeding, black/bloody bowel movements, or other new or concerning symptoms please call your primary care physician, or call 911 for re-evaluation in the emergency department if you are very concerned. Pending Studies at Discharge: No Stand-Alone Forms: [facility] [employer] Communication, Smoking Cessation Medications and DC Order Prescriptions: New atorvastatin 40 mg Tablet 80 mg PO QPM Qty: 30 1RF clopidogrel 75 mg Tablet 75 mg PO QAM Qty: 30 1RF aspirin 81 mg Tablet,Delayed Release (Dr/Ec) 81 mg PO QAM Qty: 30 1RF Continued albuterol sulfate 90 mcg/actuation HFA aerosol inhaler 2 puff inhalation Q6H PRN (Reason: shortness of breath or wheezing) Qty: 18 3RF Eliquis 5 mg tablet 5 mg PO BID Qty: 60 2RF furosemide [Lasix] 20 mg tablet 20 mg PO DAILY Qty: 30 2RF methocarbamol 500 mg tablet 500 mg PO TID PRN (Reason: muscle spasm) Qty: 90 2RF losartan 50 mg tablet 50 mg PO BID Qty: 180 3RF amlodipine [Norvasc] 5 mg tablet 5 mg PO QAM Qty: 90 1RF trazodone 50 mg tablet 50 mg PO HS PRN (Reason: Sleep) Qty: 30 2RF Patient Comments: takes every night tramadol 50 mg tablet 50 - 100 mg PO QID MDD 6 PRN (Reason: pain) Qty: 120 0RF Patient Comments: very rare diclofenac sodium 1 % gel 4 g topical QID PRN (Reason: ankle pain) Qty: 200 5RF cholecalciferol (vitamin D3) 50 mcg (2,000 unit) capsule 50 mcg PO BID Discontinued atorvastatin 10 mg tablet 10 mg PO QPM Qty: 90 3RF Discharge Orders: Discharge Order (Routine); Ordered 02/17/25 Ordered By: Rios Nagy Admission Data Admit Date/Time: 02/16/25 01:29 Attending Provider: Rios Nagy Admit Provider: Brennan Anderson Primary Care Provider: Eric Chen Other Providers: Brennan Anderson; Corey Lyons Hospital Stay Data Consultations 02/16/25 00:34 ED Decision to Admit Stat 02/16/25 02:12 Consult Cardiology Routine Procedures Performed Operation Date: 02/16/25 14:00 Actual Procedures p Cineradiography w/Routine Exam - Cesario Luke MD p Cath, Left with Cors and Vent - Cesario Luke MD p Drug Eluting Stent SGl Vessel - Cesario Luke MD Diagnostic Imagining Performed 02/16/25 01:21 CT angio chest PE protocol Stat 02/16/25 15:12 CL Cath Imgs for PACS use only Routine Discharge Instructions Given to Patient (Per Discharging Provider) You are seen in the hospital for chest pain. You were taken for cardiac evaluation via catheterization and were found to have a 90-95% blockage which was treated with a single drug-eluting cardiac stent, and 1 area of narrowing was treated with balloon angioplasty. You clinically improved and had resolution of your pain following this procedure. An ultrasound of your heart showed normal pumping function/a normal ejection fraction. You have been started on aspirin and Plavix. Please take aspirin 81 mg daily, and Plavix 75 mg daily. These are antiplatelet agents that are critically important to protect your heart stent. There is a slightly increased risk of bleeding while on these medications. Please continue to take your Eliquis for history of VTE/PE. You may continue to take this along with the aspirin/Plavix regimen. If you have any significant bleeding, including black/bloody bowel movements, persistent nosebleeds or other concerning bleeding please seek prompt medical attention. A cardiac medication called metoprolol was considered for you however held during admission due to low resting heart rate. Your reporting analyst may wish to trial this medication at a low dose depending on your repeat heart rate checks and follow-up. Please discuss this medication at your follow-up cardiology appointment. Your atorvastatin dose has been changed. Your atorvastatin dose has been increased to 80 mg once daily to help lower bad cholesterol and also stabilize existing plaques and contribute to heart attacks and strokes. We should have your lipid levels rechecked periodically as an outpatient. If you develop any new or worsening symptoms including fever, chills, sweats, chest pain, chest pressure, difficulty breathing, uncontrolled nausea/vomiting, rash, wheezing, passing out or nearly passing out, bleeding, black/bloody bowel movements, or other new or concerning symptoms please call your primary care physician, or call 911 for re-evaluation in the emergency department if you are very concerned. Total Time Total Time Spent Total Time Spent (In Minutes): Time spend day of discharge 35 minutes including direct patient care, documentation, review of labs and images, and coordination of care. Coding Level of Care Code 45655 INP/OBS DISCH >30 MIN Diagnoses Elevated troponin R79.89 Chest pain R07.9 Recurrent deep vein thrombosis (DVT) of lower extremity I82.409 Coronary artery calcification seen on CAT scan I25.10 Hx pulmonary embolism Z86.711
[2025-02-17 07:44] LABS: Hematocrit (blood only) 45.8 % (42.0-52.0); Hemoglobin 15.0 g/dl (14.0-18.0); Immature Granulocytes # (auto) 0.06 K/uL (0.01-0.20); Immature Granulocytes % (auto) 0.6 %; Mean Corpuscular Hemoglobin 29.8 pg (25.0-34.0); Mean Corpuscular Volume 91.1 fL (80.0-100.0); Platelet Count 180 K/uL (130-400); RDW Standard Deviation 44.0 fL (36.4-46.3); Red Blood Count 5.03 M/uL (4.70-6.10); White Blood Count 9.89 K/ul (4.8-10.8)
[2025-02-17 08:36] LABS: Anion Gap 5.0 (3-11); Blood Urea Nitrogen 17.0 mg/dl (6-23); Calcium 8.9 mg/dl (8.6-10.3); Carbon Dioxide 31.0 mmol/L (21-32); Chloride 103.0 mmol/L (98-107); Creatinine Clr Calc Pharmacy 108.1 ml/min; Glucose 103.0 mg/dl (70-99(Fasting)); Magnesium 2.0 mg/dl (1.7-2.4); Potassium 4.8 mmol/L (3.5-5.1); Sodium 139.0 mmol/L (136-145)
[2025-02-17] MEDS: CLOPIDOGREL BISULFATE 75 MG TAB PO SCH (08:49)
[2025-02-17] MEDS: APIXABAN 5 MG TABLET PO SCH (08:49)
[2025-02-17 10:47] VITALS: BP 166/78; PULSE 62; TEMP 99; O2SAT 95
--- NOTE | 2025-02-17 13:26 | Electrocardiogram Report ---
Test Reason : Blood Pressure : */* mmHG Vent. Rate : 59 BPM Atrial Rate : 59 BPM P-R Int : 204 ms QRS Dur : 98 ms QT Int : 370 ms P-R-T Axes : 54 10 109 degrees QTcB Int : 366 ms Sinus bradycardia Cannot rule out Inferior infarct , age undetermined Abnormal ECG When compared with ECG of 15-Feb-2025 23:12, ST no longer depressed in Inferior leads Confirmed by Colt Ornelas ([id number]) on 02/17/2025 1:26:47 PM Referred By: REFERRED SELF Confirmed By: Colt Ornelas
--- NOTE | 2025-02-18 10:05 | Cardiology Progress Note ---
Date of Service February 17, 2025 Assessment & Plan (1) CAD (coronary artery disease): Plan: Post successful PCI to mid circumflex with angioplasty to jailed OM2. Has residual 60 to 70% proximal RCA disease and 100% posterior AV branch chronic total occlusion with [id number] collaterals. Today he is feeling well. No recurrent chest pain. No apparent access site complications. Hemodynamically and electrically stable overnight. Postprocedural labs stable. From a cardiac standpoint okay with discharge today. Plan on dual therapy with Eliquis, clopidogrel. Continue ACB risk factor modifications. Additional antianginal therapy as needed as an outpatient. Beta-mercedes held for relative bradycardia. Follow-up with me in 2 weeks, had scheduled appointment to discuss venous issues and we will discuss those at follow-up. Admission and Anticipated Discharge Date Admission Date: February 16, 2025 Subjective Seen this morning. Feeling well. No chest pain. No other new concerns. Telemetry reviewno events Review of Systems Review of Systems: All systems reviewed & are unremarkable except as noted in HPI & below Physical Exam Physical Exam: General: Comfortable HEENT: Sclerae anicteric Lungs: Clear to auscultation bilaterally Cardiac: Regular rate and rhythm, no murmurs. Vascular: Right radial artery access site with no ecchymosis, hematoma. Distal pulse and sensation intact. Abdomen: Soft, nontender Extremities: Well perfused, no peripheral edema Neuro: Nonfocal Psych: Alert orient x3, normal affect and mood PG Care Time/CCT Total # of Minutes Spent Total Time Spent with Patient: Total time spent is greater than 50% in coordination of care (as documented) at patient's floor/unit and/or counseling patient: Coding Level of Care Code 48683 SUB INP/OBS CARE 2/35MIN Diagnoses CAD (coronary artery disease) I25.10
== END 2025-02-17 11:25 | disposition home or self-care (01) ==
LOC: ED 22:54 → EDINP 22:54 → SUATTDRO 02-16 01:29 → EDINP 02-16 02:12 → 2S 02-16 17:16